=== PATIENT | male | born 1965 | race Caucasian/White ===

== ENCOUNTER → 2020-07-22 16:35 | Outpatient (CLI) | payer MEDICARE, OTHER, SELFPAY | PROVIDERS: Visit Provider Urology | DX: N39.41 Urge incontinence (principal) | CPT/HCPCS: 87086; 87088; 87186 ==

== ENCOUNTER 2022-01-23 13:28 | Emergency (ER) | payer MEDICARE, OTHER, SELFPAY ==
[2022-01-23 14:07] VITALS: BP 122/80; PULSE 77; O2SAT 94
--- NOTE | 2022-01-23 14:08 | PC.NURSE ---
TREE Ramesh at BS
[2022-01-23 14:14] VITALS: BP 122/80; PULSE 88; RESP 17; TEMP 36.8; O2SAT 95; BMI 17.2
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
--- NOTE | 2022-01-23 14:30 | PC.NURSE ---
ED MD at
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
[2022-01-23 14:47] VITALS: BP 124/85; PULSE 88; O2SAT 94
--- NOTE | 2022-01-23 15:00 | PC.NURSE ---
ED MD at speaking with patient
--- NOTE | 2022-01-23 15:17 | PC.NURSE ---
Richy has been notified of patient discharge and will be coming to pick him up
[2022-01-23 15:37] VITALS: BP 121/75; PULSE 81; RESP 17; TEMP 36.8; O2SAT 97
== END 2022-01-23 15:37 | disposition home or self-care (01) ==
LOC: ER 14:16 → COUGHCL 14:20 → ER 14:23
PROVIDERS: Emergency Provider Emergency Medicine; PCP Emergency Medicine
DX: M16.6 Other bilateral secondary osteoarthritis of hip (principal); F32.A Depression, unspecified; F41.9 Anxiety disorder, unspecified; Z79.899 Other long term (current) drug therapy; Z87.891 Personal history of nicotine dependence
CPT/HCPCS: 73562; 99283

== ENCOUNTER 2024-04-10 19:48 | Emergency (ER) | payer MEDICARE, OTHER, SELFPAY ==
[2024-04-10 19:48] VITALS: BP 117/58; PULSE 59; RESP 18; TEMP 36.9; O2SAT 98; BMI 21.2
[2024-04-10 19:53] VITALS: BP 117/58; PULSE 60; O2SAT 95
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
--- OUTSIDE RECORDS SUMMARY | 2024-04-10 19:57 | XMS_ITS | Continuity of Care Document ---
Author Name Unknown Address [address] [place] [phone] Organization [facility] Phone Care Team Providers Care Manager Research Name Role Phone NO, DEFINED P Primary Care Unavailable AUNG HOLLIDAY Admitting Unavailable NO, DEFINED P Unavailable Unavailable AUNG HOLLIDAY Primary Attending Unavailable ALLERGIES AND ADVERSE REACTIONS ALLERGIES AND ADVERSE REACTIONS Code System Allergy Substance Adverse Reaction Date Reaction (Severity) Comment Status Reported By Updated By No Known Allergies EDISUSER on September 19, 2023 4:44:07 AM [facility] RESULTS Patient: NAYELI ARNOLD Date of : [birth year] 3 LABORATORY RESULTS Information is not available LABORATORY NARRATIVE RESULTS Information is not available RADIOLOGY RESULTS ORDER 100: CT BRAIN W/O ([facility] [place]: [address]-8) ORDER DATE: September 19, 2023 4:00:00 AM [facility] PERFORMING LAB: [address] [id number] Final Result Date: September 19, 2023 4:46:[address] [address] Name: CLAYTON TYLER Exam Date: 09/18/2023 : 1965 Age 58 Gender: M Physician: AUNG HOLLIDAY Facility: [facility] Facility HSV: Outpatient Exam: CT BRAIN [...] Thank you for referring CLAYTON TYLER to [facility]. Legally authenticated by YAMIL Mckee 2023-09-18 23:46:04 ORDER 200: PELVIS AP ONLY (L OINC: 87877-8) ORDER DATE: September 19, 2023 4:00:00 AM [facility] PERFORMING LAB: [address] [id number] Final Result Date: September 19, 2023 5:25:41 AM [place] [id number] Name: CLAYTON TYLER Exam Date: 09/18/2023 : 1965 Age 58 Gender: M Physician: AUNG HOLLIDAY Facility: [facility] Facility HSV: Outpatient Exam: PELVIS AP [...] Thank you for referring CLAYTON TYLER to [facility]. Legally authenticated by YOSELIN FELIZ 2023-09-19 00:25:41 ORDER 300: KNEE 3V RT (LOINC : [id number]) ORDER DATE: September 19, 2023 4:00:00 AM [facility] PERFORMING LAB: [facility] [address] [facility] [id number] Final Result Date: September 19, 2023 5:25:29 AM [facility] [address] [place] [address] Name: CLAYTON TYLER Exam Date: 09/18/2023 : 1965 Age 58 Gender: M Physician: AUGN HOLLIDAY Facility: [facility] Facility HSV: Outpatient Exam: KNEE 3V [...] Thank you for referring CLAYTON TYLER to [facility]. Legally authenticated by YOSELIN FELIZ 2023-09-19 00:25:29 [...] Priority Start Date Ordering Physician Updated By [employer] RAD-PUT IMAGES ON RIS ONE TIME 0 [...] Description Effective Dates Offered Cessation Comment UpdatedBy [id number] Current Tobacco smoking status Unknown If Ever Smoked EDISUSER on September 19, 2023 5:45:05 AM [facility] SOCIAL HISTORY - Gender Sex: Male SOCIAL HISTORY - Sexual Behavior Sexual Orientation Gender Identity SNOMED-CT Description SNO MED -CT Description Activity Level No of Partners Partner Type UpdatedBy Information is not available VITAL SIGNS PATIENT VITAL SIGNS This section displays the mo st recent value for each vital sign as of September 19, 2023 6:50:06 AM [facility] Loinc Code Vital Sign Activity Date Result Updated By [id number] Heart rate September 19 5:15:00 AM [facility] 47 /min EDISUSER on September 19, 2023 5:34:24 AM [facility] PEDIATRIC GROWTH CHART - VITAL SIGNS This [...] EMS Admission September 19, 2023 3:57:[address] [address] Discharge September 19, 2023 5:50:00 AM [facility] DISCHARGED TO HOME OR SELF CARE ENCOUNTER DIAGNOSES Notes information is not joanna ilable. Code System Diagnosis Onset Date Diagnosis information is not available. ABSTRACT DIAGNOSES Code System Diagnosis Updated By Abstract Diagnosis informati on is not available. CARE TEAM Care Manager Research Role DEFINED NO Primary Care AUNG HOLLIDAY Admitting DEFINED NO Referring AUNG HOLLIDAY Primary Attending CARE TEAM CARE continuous improvement director Role on Team Status Start Date End Date Update d By NO DEFINED PRIMARY C Referring normal September 19, 2023 4:43:51 AM [facility] September 19, 2023 5:50:00 AM [facility] [id number] on September 19, 2023 4:43:51 AM [facility] MG BEATTY Attending normal September 19, 2023 4:43:51 AM [facility] September 19, 2023 5:50:00 AM [facility] [id number] on September 19, 2023 4:43:51 AM [facility] MG Ortez PHY Admitting normal September 19, 2023 4:43:50 AM [place] September 19, 2023 5:50:00 AM [facility] [id number] on September 19, 2023 4:43:51 AM [facility] NO DEFINED PRIMARY C PCP normal September 19, 2023 3:58:03 AM [place] September 19, 2023 5:50:00 AM [facility] [id number] on September 19, 2023 4:43:51 AM [facility]
[2024-04-10 20:00] VITALS: BP 113/61; PULSE 60; O2SAT 98
--- NOTE | 2024-04-10 20:03 | XR_ITS ---
PROCEDURE INFORMATION: Exam: XR Right Knee Exam date and time: 04/10/2024 8:20 PM Age: 58 years old Clinical indication: Pain; Knee; Right; Additional info: Right knee pain chronic TECHNIQUE: Imaging protocol: Radiologic exam of the right knee. Views: 3 views. COMPARISON: CR XR KNEE RT 3V 01/23/2022 2:32 PM FINDINGS: Bones/joints: Severe calcific atherosclerotic disease of the 3 compartments of the right knee greatest within the medial compartment. Soft tissues: Normal. IMPRESSION: Severe calcific atherosclerotic disease of the 3 compartments of the right knee greatest within the medial compartment.
[2024-04-10] MEDS: ACETAMINOPHEN 500MG TAB 1000 MG PO (20:15)
[2024-04-10] MEDS: IBUPROFEN 600 MG TABLET PO (20:15)
--- NOTE | 2024-04-10 20:26 | ED_ITS ---
Discharge Plan Disposition Patient Disposition: Home, Self-Care Prescriptions Prescriptions: New ibuprofen 400 mg tablet 400 mg PO Q8H PRN (Reason: pain) Qty: 30 0RF acetaminophen 500 mg tablet 1,000 mg PO Q6H PRN (Reason: pain) Qty: 60 0RF No Action divalproex 125 mg capsule, delayed rel sprinkle 250 mg PO BID Qty: 120 2RF Tab-A-Rubi Multivitamin w-iron 15 mg iron- 400 mcg tablet See Rx Instructions .ROUTE .COMPLEX Qty: 30 0RF Dose Instruction: TAKE 1 TABLET BY MOUTH DAILY Rx Instructions: TAKE 1 TABLET BY MOUTH DAILY Referrals Follow up/Referrals: Dom Rios, [Staff Physician] - See instructions Alan Garcia APRN [Primary Care Provider] - See instructions Activity Restrictions/Add. Instructions Additional Instructions/Restrictions: Call your family doctor to establish care for this visit to the emergency department and schedule follow-up within 48 hours to ensure improvement. If you have any worsening of your condition or any other concerning signs or symptoms, return to the emergency department or your primary care doctor for further evaluation. Call Dr. Rios to follow-up for potential knee replacement. His information is here. Take Tylenol 1000 mg every 6 hours (4 times daily) and ibuprofen 400 mg every 6 hours (4 times daily) as needed with food and water to prevent GI upset and kidney damage. Clinical Impressions Clinical Impression: Acute pain of right knee Discharge ED Provider: Paul Turner General Adult HPI General Chief complaint: PAIN Stated complaint: knee pain Time Seen by Provider: 04/10/24 19:56 Mode of Arrival: EMS Source of Information: Patient and EMS Limitations: No Limitations Description of Symptoms (Recalled from ER Triage Doc. by RN): 58 M presents from [facility] with c/o chronic knee pain. Patient reports breaking his right knee in 1981. He spoke with his PCP the other day and mentioned his knee hurting, so they suggested surgey. He would like a second opinion today. Ambula janessa without assistance. History of Present Illness HPI narrative: Please note that above description of symptoms, in this electronic medical record under categorization of recalled from ER triage doctor by RN are reflective of an initial nursing assessment, however, is not reflective of my full history and physical exam that was personally taken and clarified. Consequentially, this preceding description of symptoms, which may include the patient's categorized chief complaint in the EMR, do not reflect my personal clinical impression, and the ultimate description of history of present illness and patient stated complaints should be deferred to this section of the note. Unless stated otherwise or congruent with this section of the note, additional signs, symptoms, or incongruence should be interpreted as inaccurate with my clinical impression. Related Data Previous Rx's Medication Instructions Recorded divalproex 125 mg capsule,delayed 250 mg (2 x 125 mg) PO BID #120 12/11/20 release sprinkle caps multivitamin-iron sulfate 15 See Rx Instructions .Route 05/15/21 mg-folic acid 400 mcg tablet .COMPLEX #30 tabs (Tab-A-Rubi Multivitamin w-iron) acetaminophen 500 mg tablet 1,000 mg (2 x 500 mg) PO Q6H PRN 04/10/24 pain #60 tabs ibuprofen 400 mg tablet 400 mg PO Q8H PRN pain #30 tabs 04/10/24 Allergies Allergy/AdvReac Type Severity Reaction Status Date / Time No Known Allergies Allergy Verified 02/05/22 12:05 [facility] Disclaimer: The information contained in this section may have been updated after the patient was seen, as this information can be updated by other users. Social History Smoking Status: Current some day smoker alcohol intake: former substance use type: denies use current occupational status: disabled Travel in the last 8 weeks: Inside the [facility] housing: detention ROS Obtained: Yes All systems reviewed & no additional complaints except as documented Physical Exam General General appearance: alert Head Head exam: atraumatic and normocephalic Eye Eye exam: Present normal appearance, PERRL and EOMI Neck Neck exam: Present normal inspection, full ROM and trachea midline Respiratory Respiratory exam: Absent respiratory distress, wheezes, stridor, accessory muscle use or prolonged expiratory phase Cardiovascular Cardiovascular exam: Present other (Pulses equal symmetric in upper and lower extremities) Abdominal Exam Abdominal exam: Present soft; Absent distention, tenderness or pulsatile mass Extremities Exam Extremities exam: Present other (Per MDM); Absent edema Neurological Exam Neurological exam: Present alert, oriented X3 and CN II-XII intact; Absent motor sensory deficit Skin Skin exam: Present warm and dry; Absent diaphoresis or erythema Medical Decision Making Medical Records Medical records reviewed: Yes I reviewed the patient's medical records. Wilner Inquiry Pt receiving controlled substance: No Wilner was queried for this patient: No Vital Signs: 04/10/24 19:48 Temperature 98.4 F Temperature Source Oral Pulse Rate [Left] 59 L Respiratory Rate 18 Blood Pressure [Right Arm] 117/58 L Blood Pressure Mean [Right Arm] 77 Blood Pressure Source [Right Arm] Automatic Cuff Blood Pressure Position [Right Arm] Sitting 02 Sat by Pulse Oximetry 98 Oxygen Delivery Method Room Air Orders (Tests/Meds): ED MEDICATIONS Discontinued Medications Generic Name Dose Route Start Last Admin Trade Name Ara PRN Reason Stop Dose Admin Acetaminophen 1,000 mg 04/10/24 20:03 04/10/24 20:15 Acetaminophen 500mg Tab PO 04/10/24 20:04 1,000 mg ONCE ONE Administration Ibuprofen 600 mg 04/10/24 20:03 04/10/24 20:15 Ibuprofen 600 Mg Tablet PO 04/10/24 20:04 600 mg ONCE ONE Administration ORDERS Category Date Time Status Knee XR right 3 views [XR knee RT 3V] Stat Exams 04/10/24 20:03 Taken Medical Decision Narrative: This is a 58-year-old male with history of seizure disorder, COPD still currently smoking, chronic right knee pain and deformity secondary to previous injury necessitated surgery presenting with knee pain. Patient states that his knee pain has been going on for years. States that when he walks he gets worse and causes pain in the medial aspect of his knee. Able to bear weight, it does cause pain when he does so. Has not taken any Tylenol Motrin because the facility he is at ran out. No fevers or chills, red hot swollen joints, injury to the area, or any other concerns. History was obtained via conversation with patient. On arrival, patient hemodynamically stable, alert, oriented x4, appropriate, GCS 15, moving all extremities spontaneously, pupils equal and reactive to light. Full physical exam performed and significant for patient's chronic deformity of right lower extremity with bony protrusion laterally. Neurovascular intact, ambulatory, range of motion is intact. He states it is painful at maximal, and range of motion extension of the knee. Also states that it gets stuck, but does not on my exam with active or passive range of motion. Differential includes meniscus injury, acute on chronic pain, among others. On reevaluation, independent rotation of patient's x-rays demonstrate no acute abnormality, but he does have severe chronic degenerative change of the right knee with chronic deformity. Tylenol and Motrin seem to have helped mildly on reevaluation. Given patient presentation, workup, history, this most likely represents acute on chronic knee pain. I feel patient's right knee is appropriate for potential total knee replacement given degree of deformity and d egeneration. Because patient at baseline without signs or symptoms of clinical decompensation, deemed appropriate for discharge. Results were relayed to patient who voiced understanding and were agreeable to outpatient management and follow up. I discussed my clinical impression with patient and answered all questions. At this time, the evidence for any other entities in the differential is insufficient to warrant any further testing or ED observation. This was explained as well. Advisory was given that persistent or worsening symptoms require further evaluation. I confirmed the understanding of this discussion. Valve Steamer disclaimer Much of this encounter note is an electronic coal pulverizing operator spoken language to printed text. Electronic coal pulverizing operator of the spoken language may permit errors. Although I have reviewed the note, some errors may still exist. Critical Care Critical Care Time Critical Care Time: No
[2024-04-10 20:30] VITALS: BP 111/63; PULSE 59; O2SAT 98
[2024-04-10 21:00] VITALS: BP 107/62; PULSE 52; O2SAT 98
[2024-04-10 21:39] VITALS: BP 138/79; PULSE 80; RESP 20; TEMP 36.7; O2SAT 97
== END 2024-04-10 21:40 | disposition home or self-care (01) ==
PROVIDERS: Emergency Provider Emergency Medicine; PCP Nurse Practitioner Acute Care
DX: M25.561 Pain in right knee (principal)
CPT/HCPCS: 73562; 99283

== ENCOUNTER 2024-10-06 17:57 | Emergency (ER) | payer MEDICARE, OTHER, SELFPAY ==
[2024-10-06] VITALS (8 sets, daily range): BP systolic 94–126; BP diastolic 46–84; PULSE 43–69; RESP 12–20; TEMP 36.6–36.9; O2SAT 95–98; BMI 32.3
--- NOTE | 2024-10-06 17:57 | XR_ITS ---
PROCEDURE INFORMATION: Exam: XR Right Knee Exam date and time: 10/06/2024 6:06 PM Age: 59 years old Clinical indication: Pain; Right; Patient HX: PT has a knot on lateral side of knee TECHNIQUE: Imaging protocol: Radiologic exam of the right knee. Views: 3 views. COMPARISON: CR XR KNEE RT 3V 04/10/2024 8:20 PM FINDINGS: Bones/joints: Stable severe tricompartmental osteoarthritis with near complete loss of the joint space, large marginal osteophyte formation, and subchondral sclerosis. Metallic density within the medial femoral condyle suggests prior ligamentous repair. No acute fracture. Small suprapatellar effusion. Soft tissues: Bulbous swelling in the lateral knee compartment. IMPRESSION: 1. Bulbous swelling in the lateral knee compartment. Could be related to underlying ligamentous or tendinous injury. Consider correlation with MRI. 2. Severe and stable tricompartmental osteoarthritis without acute fracture. 3. Small suprapatellar effusion.
--- NOTE | 2024-10-06 17:58 | ECG_ITS ---
APPROVED REPORT Exam: Resting ECG HR:55 bpm ECG Measurements Heart Rate 55 AXES DE 187 P 98 QRSd 92 QRS 83 QT 422 T 58 QTc [address] ELEVATION, PROBABLY EARLY REPOLARIZATION [ST ELEVATION WITH NORMALLY INFLECTED T-WAVE] BORDERLINE ECG UNCONFIRMED REPORT Electronically signed by : Blair Fitzpatrick, 10/06/2024 23:11:14
[2024-10-06 18:09] LABS: Basophils # 0.1 K/mm3 (0-0.2); Basophils % 0.2 % (0.1-2.0); Eosinophils # 0.2 K/mm3 (0.0-0.4); Eosinophils % 0.6 % (0.1-12.0); Hematocrit 40.2 % (42.0-52.0); Hemoglobin 13.7 g/dL (14.1-18.0); Lymphocytes # 23.7 K/mm3 (0.7-4.5); Lymphocytes % 88.5 % (10-50); Mean Corpuscular HGB Conc 34.1 g/dL (31.8-35.4); Mean Corpuscular Hemoglobin 33.6 pg (27.0-31.2); Mean Corpuscular Volume 98.5 fl (80-94); Mean Platelet Volume 9.7 fl (7.4-10.4); Monocytes # 0.6 K/mm3 (0.1-1.0); Monocytes % 2.3 % (1.7-9.3); Neutrophils # 2.2 K/mm3 (1.8-7.8); Platelet Count 266 K/mm3 (142-424); Red Blood Count 4.08 M/mm3 (4.60-6.20); White Blood Count 26.8 K/mm3 (4.8-10.8)
[2024-10-06 18:14] LABS: MANUAL DIFFERENTIAL MANUAL DIFFERENTIAL (MANUAL DIFF); Neutrophils % 8.3 % (37.0-80.0)
--- NOTE | 2024-10-06 18:29 | XR_ITS ---
PROCEDURE INFORMATION: Exam: XR Chest Exam date and time: 10/06/2024 6:26 PM Age: 59 years old Clinical indication: Pain; Left-sided; Additional info: Chest pain TECHNIQUE: Imaging protocol: Radiologic exam of the chest. Views: 2 views. COMPARISON: CR XR CHEST 2V 10/06/2024 6:26 PM FINDINGS: Lungs: Mild bilateral bronchial wall thickening. There is no evidence of focal pulmonary consolidation. Bilateral apical capping/scarring. Pleural spaces: Unremarkable. No pleural effusion. No pneumothorax. Heart/Mediastinum: Unremarkable. No cardiomegaly. Vasculature: Calcified aortic knob. Bones/joints: Unremarkable. IMPRESSION: Mild bilateral bronchial wall thickening. Suggestive of acute/chronic bronchitis or reactive airways disease.
[2024-10-06 18:39] LABS: Lymphocytes % 88 % (10-50); Monocytes % 1 % (2-9); Neutrophils % 11 % (42-76); Platelet Estimate Normal; RBC Morphology Normal; Total Cells Counted 100
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
[2024-10-06 18:47] LABS: Microscopic, Urine URINE MICROSCOPIC (MICROSCOPIC)
[2024-10-06 18:49] LABS: Alanine Aminotransferase 36 U/L (12-78); Alkaline Phosphatase 128 U/L (38-126); Aspartate Amino Transferase 47 U/L (17-59); Bilirubin,Total 0.3 mg/dl (0.2-1.3); Blood Urea Nitrogen 18 mg/dl (9-20); Calcium 9.3 mg/dl (8.4-10.2); Chloride 96 mmol/L (98-107); Creatinine Clearance Estimated 112 mL/min (50-200); Estimated Glomerular Filt Rate 115 ml/min (>60); GFR (African American) 139 ML/MIN (>60); Glucose 95 mg/dl (74-100); Lipase 59 U/L (23-300); Potassium 4.3 mmoL/L (3.5-5.1); Sodium 134 mmol/L (136-145); Total Protein,Serum 6.8 g/dl (6.3-8.2)
[2024-10-06 18:51] LABS: Anion Gap 10.3 mEq/L (5-15); Carbon Dioxide 32 mmol/L (22.0-30.0)
[2024-10-06 18:57] LABS: Coronavirus 19, PCR Not Detected (NotDetected); Influenza A, PCR Not Detected (NotDetected); Influenza B, PCR Not Detected (NotDetected)
[2024-10-06 19:00] LABS: Troponin I < 0.01 ng/ml (0.00-0.034)
[2024-10-06 19:08] LABS: Albumin/Globulin Ratio 1.4 (1.1-1.8); Globulin 2.8 g/dL (1.3-3.2)
[2024-10-06 19:19] LABS: Appearance,Urine CLEAR (Clear); Bilirubin,Urine Negative (Negative); Blood, Urine 2+ (Negative); Color,Urine YELLOW (Yellow); Glucose,Urine (UA) Negative (Negative); Ketones,Urine Negative (Negative); Leukocyte Esterase,Urine Negative (Negative); Nitrate,Urine Negative (Negative); Protein,Urine Negative (Negative); Urobilinogen,Urine 0.2 EU/dl (0.2)
[2024-10-06 19:25] LABS: C-Reactive Protein 4.1 mg/L (0-4)
[2024-10-06 19:35] LABS: Bacteria,Urine Trace /lpf
--- NOTE | 2024-10-06 20:31 | CT_ITS ---
PROCEDURE INFORMATION: Exam: CT Abdomen And Pelvis Without Contrast Exam date and time: 10/06/2024 8:44 PM Age: 59 years old Clinical indication: Other: Hematuria TECHNIQUE: Imaging protocol: Computed tomography of the abdomen and pelvis without contrast. Radiation optimization: All CT scans at this facility use at least one of these dose optimization techniques: automated exposure control; mA and/or kV adjustment per patient size (includes targeted exams where dose is matched to clinical indication); or iterative reconstruction. COMPARISON: CR Chest 10/06/2024 6:26 PM FINDINGS: Lungs: Lung bases are clear.The esophagus is normal. Liver: Normal. No mass. Gallbladder and biliary ducts: Gallbladder is collapsed difficult to visualize. Pancreas: Pancreas appears normal. Spleen: Spleen is normal Adrenal glands: The adrenal glands appear normal. Kidneys and ureters: No hydronephrosis or urinary tract calculi. Small left renal cyst. Stomach and bowel: Retained stool in the colon. Nonspecific bowel gas pattern. No secondary signs of appendicitis. The rectum has a thick-walled appearance but is predominantly collapsed and difficult to evaluate. Stomach is distended with fluid and debris. Appendix: See Stomach and bowel finding. Intraperitoneal space: Unremarkable. No free air. No significant fluid collection. Vasculature: The aorta demonstrates mild atherosclerotic calcification. Lymph nodes: No free air or fluid or adenopathy. Urinary bladder: The bladder is normal. Reproductive: The prostate and seminal vesicles are normal. Bones/joints: Probable posttraumatic deformity right para median pubic symphysis image 3/113. Soft tissues: Unremarkable. IMPRESSION: 1. No free air or fluid or adenopathy. 2. No hydronephrosis or urinary tract calculi. Small left renal cyst. 3. Retained stool in the colon. Nonspecific bowel gas pattern. No secondary signs of appendicitis. 4. The rectum has a thick-walled appearance but is predominantly collapsed and difficult to evaluate. COMMENTS: Consistent with the [employer]'s Incidental Findings Committee white paper (J Am Chelsey Radiol 2018): Any incidental renal lesion less than 1 cm or classified as too small to characterize, or any incidental cystic renal lesion characterized as simple-appearing, is likely benign. No follow-up imaging is recommended for these lesions per consensus recommendations based on imaging criteria.
[2024-10-06 20:39] LABS: Erythrocyte Sedimentation Rate 18 mm/hr (0-20)
== END 2024-10-06 23:58 | disposition home or self-care (01) ==
PROVIDERS: Nurse Practitioner; Emergency Provider Student in an Organized Health Care Education/Training Program
DX: R31.9 Hematuria, unspecified (principal); R07.9 Chest pain, unspecified; R06.02 Shortness of breath; M25.561 Pain in right knee
CPT/HCPCS: 71046; 73562; 74176; 80053; 81001; 83605; 83690; 84484; 85007; 85025; 85027; 85651; 86140; 87040; 87636; 93005; 99285

== ENCOUNTER 2024-12-30 12:07 | Emergency (ER) | payer MEDICARE, OTHER, SELFPAY ==
[2024-12-30 12:08] VITALS: BP 134/65; PULSE 64; RESP 18; TEMP 37.7; O2SAT 99; BMI 18.6
--- NOTE | 2024-12-30 12:34 | XR_ITS ---
PROCEDURE INFORMATION: Exam: XR Right Tibia and Fibula Exam date and time: 12/30/2024 12:48 PM Age: 59 years old Clinical indication: Other: Fall, chronic deformity, increase pain; Knot on lateral side of knee TECHNIQUE: Imaging protocol: Radiologic exam of the right tibia and fibula. Views: 2 views. COMPARISON: CR XR KNEE RT 3V 10/06/2024 6:06 PM FINDINGS: Bones/joints: End-stage tricompartmental joint space narrowing with osseous erosion and subchondral cystic formation. Large osteophyte formation. No acute fracture or dislocation. Stable varus deformity at the knee joint. Metallic density in the distal femur may be postsurgical. Small suprapatellar joint effusion. Soft tissues: Stable soft tissue deformity along the lateral aspect of the knee. IMPRESSION: 1. Stable soft tissue deformity along the lateral aspect of the knee. 2. Stable end-stage osteoarthritis. 3. Small suprapatellar joint effusion.
--- NOTE | 2024-12-30 12:34 | XR_ITS ---
PROCEDURE INFORMATION: Exam: XR Right Knee Exam date and time: 12/30/2024 12:48 PM Age: 59 years old Clinical indication: Other: Fall, chronic deformity, increase pain; Knot on lateral side of knee; Additional info: Chronic pain/ deformity, recent fall andpain TECHNIQUE: Imaging protocol: Radiologic exam of the right knee. Views: 3 views. COMPARISON: CR XR KNEE RT 3V 10/06/2024 6:06 PM FINDINGS: Bones/joints: End-stage tricompartmental joint space narrowing with osseous erosion and subchondral cystic formation. Large osteophyte formation. No acute fracture or dislocation. Stable varus deformity at the knee joint. Metallic density in the distal femur may be postsurgical. Small suprapatellar joint effusion. Soft tissues: Stable soft tissue deformity along the lateral aspect of the knee. IMPRESSION: 1. Stable soft tissue deformity along the lateral aspect of the knee. 2. Stable end-stage osteoarthritis. 3. Small suprapatellar joint effusion.
--- NOTE | 2024-12-30 12:39 | ED_ITS ---
<Statement entered by Jesse Cao MD - 12/30/24 16:05> I was consulted by the NELLIE, and we discussed the complexity of the problems being addressed. I approved the treatment and management plan for this patient's care in the emergency department, thus performing a substantive portion of the medical decision making. Jesse Cao MD Discharge Plan Disposition Patient Disposition: Home, Self-Care Condition: Good Prescriptions Prescriptions: No Action divalproex 125 mg capsule, delayed rel sprinkle 250 mg PO BID Qty: 120 2RF Tab-A-Nilo Multivitamin w-iron 15 mg iron- 400 mcg tablet See Rx Instructions .ROUTE .COMPLEX Qty: 30 0RF Dose Instruction: TAKE 1 TABLET BY MOUTH DAILY Rx Instructions: TAKE 1 TABLET BY MOUTH DAILY ibuprofen 400 mg tablet 400 mg PO Q8H PRN (Reason: pain) Qty: 30 0RF acetaminophen 500 mg tablet 1,000 mg PO Q6H PRN (Reason: pain) Qty: 60 0RF docusate sodium 100 mg Tablet 100 mg PO DAILY donepezil 5 mg Tablet 5 mg PO DAILY ferrous sulfate 325 mg (65 mg iron) Tablet 325 mg PO DAILY oxybutynin chloride 10 mg Tablet Extended Release 24hr 10 mg PO DAILY paroxetine HCl 10 mg Tablet 10 mg PO DAILY multivitamin [TAB A NILO] Tablet 1 tab PO DAILY atorvastatin 20 mg Tablet 20 mg PO HS benztropine 0.5 mg Tablet 0.5 mg PO BID tamsulosin [Flomax] 0.4 mg Capsule 0.4 mg PO HS divalproex 125 mg Tablet,Delayed Release (Dr/Ec) 375 mg PO BID olanzapine [Zyprexa] 20 mg Tablet 20 mg PO HS sodium chloride 1,000 mg Tablet,Soluble 1,000 mg PO BID haloperidol 10 mg tablet 10 mg PO TID Referrals Follow up/Referrals: Mamta Robertson APRN [Primary Care Provider] - See instructions Activity Restrictions/Add. Instructions Additional Instructions/Restrictions: You were seen for arthritis of the right knee. You need to see an orthopedic surgeon. I would recommend Dr. Emerson in [place], [place] ? . Please have your PCP refer you. Clinical Impressions Clinical Impression: Arthritis of knee, right Instructions Patient Instructions: DI for Knee Pain Print Language Print Language: Honduran Discharge ED Provider: Cao,Jesse G General Adult HPI General Chief complaint: PAIN Stated complaint: right knee pain Time Seen by Provider: 12/30/24 12:08 Mode of Arrival: Ambulatory Source of Information: Patient Description of Symptoms (Recalled from ER Triage Doc. by RN): Pt arrives from [facility] for evaluation of right knee swelling and pain x 2 months. Pt was supposed to have surgery on his knee but has not had that done. VSS History of Present Illness HPI narrative: Patient presents complaining of right knee pain. He reports that he has had a deformity and swelling for 2 years since an injury and surgery. Patient is a poor historian and unable to say where his operation was performed. He reports that on he had a fall injuring his knee. Since that time he has had increased pain. No known fever. MD complaint: Right knee pain Onset (ago): day(s) (2) Location: right and lower extremity Radiation: extremity Severity: moderate Consistency: constant Relieving factors: none Exacerbating factors: movement Related Data Home Medications ?Medication ?Instructions ?Recorded ?Confirmed atorvastatin 20 mg tablet 20 mg PO HS 12/30/24 12/30/24 benztropine 0.5 mg tablet 0.5 mg PO BID 12/30/24 12/30/24 divalproex 125 mg tablet,delayed 375 mg PO BID 12/30/24 12/30/24 release docusate sodium 100 mg tablet 100 mg PO DAILY 12/30/24 12/30/24 donepezil 5 mg tablet 5 mg PO DAILY 12/30/24 12/30/24 ferrous sulfate 325 mg (65 mg 325 mg PO DAILY 12/30/24 12/30/24 iron) tablet haloperidol 10 mg tablet 10 mg PO TID 12/30/24 12/30/24 multivitamin 1 tab PO DAILY 12/30/24 12/30/24 olanzapine 20 mg tablet (Zyprexa) 20 mg PO HS 12/30/24 12/30/24 oxybutynin chloride 10 mg 10 mg PO DAILY 12/30/24 12/30/24 tablet,extended release 24 hr paroxetine HCl 10 mg tablet 10 mg PO DAILY 12/30/24 12/30/24 sodium chloride 1,000 mg soluble 1,000 mg PO BID 12/30/24 12/30/24 tablet tamsulosin 0.4 mg capsule (Flomax) 0.4 mg PO HS 12/30/24 12/30/24 Previous Rx's ?Medication ?Instructions ?Recorded divalproex 125 mg capsule,delayed 250 mg (2 x 125 mg) PO BID #120 12/11/20 release sprinkle caps multivitamin-iron sulfate 15 See Rx Instructions .Route 05/15/21 mg-folic acid 400 mcg tablet .COMPLEX #30 tabs (Tab-A-Nilo Multivitamin w-iron) acetaminophen 500 mg tablet 1,000 mg (2 x 500 mg) PO Q6H PRN 04/10/24 pain #60 tabs ibuprofen 400 mg tablet 400 mg PO Q8H PRN pain #30 tabs 04/10/24 Allergies Allergy/AdvReac Type Severity Reaction Status Date / Time No Known Allergies Allergy Verified 12/30/24 12:13 [facility] Disclaimer: The information contained in this section may have been updated after the patient was seen, as this information can be updated by other users. Social History Smoking Status: Never smoker alcohol intake: former substance use type: denies use current occupational status: disabled Travel in the last 8 weeks: Inside the [place] housing[place] [facility] Have you lived/traveled outside [place] in past 30 days?: No Contact w/someone who lives/traveled outside [place] past 30 days?: No Exposure to someone with infectious disease in past 14 days?: No Do you have a fever (greater than 100.4 F or 38 C)?: No Have you tested positive for COVID-19: No Exposed to someone with COVID-19 in past 14 days?: No Do you have a sore throat?: No Do you have a cough?: No Do you have any weakness?: No Do you have any diarrhea?: No Are you experiencing any unusual bleeding?: No Do you have any muscle aches/pain?: No Do you have any abdominal pain?: No Are you experiencing loss of taste or smell?: No Other Medical History Have you received the Flu Vaccine for this season: No Have you received the Pneumonia Vaccine: No ROS Obtained: Yes Systems reviewed as appropriate & no additional complaints except as documented Physical Exam General General appearance: alert and in no apparent distress Head Head exam: atraumatic and normocephalic Eye Eye exam: Present normal appearance and EOMI Chest Chest inspection: Present symmetric chest wall rise Respiratory Respiratory exam: Present normal lung sounds bilaterally; Absent wheezes or stridor Cardiovascular Cardiovascular exam: Present regular rate and normal rhythm; Absent systolic murmur Extremities Exam Extremities exam: Present other (Right knee varus deformity. Limited flexion. N/V intact. Medial tenderness and edema, no erythema. He has a lateral cystic deformity 3 cm which is chronic. ) Neurological Exam Neurological exam: Present alert and oriented X3 Psychiatric Psychiatric exam: Present normal affect and normal mood Skin Skin exam: Present warm, dry and intact Medical Decision Making Medical Records Screening: Per USPSTF and CDC recommendations, given the prevalence of disease in our [facility], it is our hospital?s policy to screen for HIV and viral Hepatitis for all patients aged 18 and over and those with ongoing risk factors. Wilner Inquiry Pt receiving controlled substance: No Vital Signs: 12/30/24 12:08 12/30/24 13:14 12/30/24 13:30 Temperature 99.8 F H Temperature Source Oral Pulse Rate 66 67 Pulse Rate [Right] 64 Respiratory Rate 18 Blood Pressure 118/60 105/58 L Blood Pressure [Right Arm] 134/65 Blood Pressure Mean 73 Blood Pressure Mean [Right Arm] 88 Blood Pressure Source [Right Arm] Automatic Cuff Blood Pressure Position [Right Arm] Sitting 02 Sat by Pulse Oximetry 99 98 96 Oxygen Delivery Method Room Air Room Air Room Air 12/30/24 14:00 12/30/24 14:30 Temperature Temperature Source Pulse Rate 70 68 Pulse Rate [Right] Respiratory Rate Blood Pressure 107/54 L 116/53 L Blood Pressure [Right Arm] Blood Pressure Mean 65 Blood Pressure Mean [Right Arm] Blood Pressure Source [Right Arm] Blood Pressure Position [Right Arm] 02 Sat by Pulse Oximetry 96 97 Oxygen Delivery Method Room Air Room Air Orders (Tests/Meds): ORDERS Category Date Time Status Knee XR right 3 views [XR knee RT 3V] Stat Exams 12/30/24 12:34 Completed Tibia/fibula XR right 2 views [XR tibia fibula RT 2V] Exams 12/30/24 12:34 Completed Stat HIV Combo Stat Lab 12/30/24 12:12 Ordered Hepatitis C Ab Qual. W/ RFX Stat Lab 12/30/24 12:12 Ordered Medical Decision Narrative: In summary patient is a 59-year-old male who presents the emergency department for evaluation of right knee pain. Patient is hemodynamically upon arrival, afebrile. Obvious deformity to the right knee, some edema, no erythema, no significant tenderness. Deformity and edema are chronic, however patient has had increased pain since a fall. Differential diagnosis includes recurrent fracture, malalignment, effusion. Initial workup will be conducted with x-rays. X-rays show significant arthritis. I did discuss this with Dr. Rios who recommended the patient follow-up with Dr. Pineda for discussion of possible knee replacement. He reports that this is acceptable for weightbearing. Patient was able to ambulate using a walker and was discharged from the emergency with one. Advised to follow-up with PCP for referral to see Dr. Emperatriz bush. Critical Care Critical Care Time Critical Care Time: No
[2024-12-30 13:14] VITALS: BP 118/60; PULSE 66; O2SAT 98
[2024-12-30 13:30] VITALS: BP 105/58; PULSE 67; O2SAT 96
[2024-12-30 14:00] VITALS: BP 107/54; PULSE 70; O2SAT 96
--- NOTE | 2024-12-30 14:23 | PC.NURSE ---
called and [facility]vm with [facility] for walker order per ER MD
[2024-12-30 14:30] VITALS: BP 116/53; PULSE 68; O2SAT 97
--- NOTE | 2024-12-30 14:48 | PC.NURSE ---
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
[2024-12-30 15:07] VITALS: BP 148/79; PULSE 90; RESP 20; TEMP 36.7; O2SAT 98
== END 2024-12-30 15:08 | disposition home or self-care (01) ==
PROVIDERS: Emergency Provider Emergency Medicine; PCP Nurse Practitioner Family
DX: M17.11 Unilateral primary osteoarthritis, right knee (principal); M25.561 Pain in right knee
CPT/HCPCS: 73562; 73590; 99283

== ENCOUNTER 2025-02-09 14:17 | Emergency (ER) | payer MEDICARE, OTHER, SELFPAY ==
[2025-02-09] VITALS (14 sets, daily range): BP systolic 106–133; BP diastolic 58–78; PULSE 52–72; RESP 12–18; TEMP 36.6–36.7; O2SAT 94–100; BMI 22.6
--- NOTE | 2025-02-09 14:17 | ECG_ITS ---
APPROVED REPORT Exam: Resting ECG HR:84 bpm ECG Measurements Heart Rate 84 AXES NM 198 P 84 QRSd 85 QRS 99 QT 397 T 35 QTc 439 Conclusion Sinus rhythm Right axis deviation Electronically signed by : PINEDA CRENSHAW, 02/10/2025 19:40:35
--- NOTE | 2025-02-09 15:17 | CT_ITS ---
PROCEDURE INFORMATION: Exam: CT Head Without Contrast Exam date and time: 02/09/2025 3:38 PM Age: 59 years old Clinical indication: Altered mental status/memory loss; Additional info: Intermittent confusion TECHNIQUE: Imaging protocol: Computed tomography of the head without contrast. Radiation optimization: All CT scans at this facility use at least one of these dose optimization techniques: automated exposure control; mA and/or kV adjustment per patient size (includes targeted exams where dose is matched to clinical indication); or iterative reconstruction. COMPARISON: No relevant prior studies available. FINDINGS: Brain: No acute intracranial hemorrhage.. There is mild diffuse heterogeneity of the white matter attenuation, consistent with chronic white matter ischemic changes. Mild cerebral atrophy Cerebral ventricles: No ventriculomegaly. Paranasal sinuses: Visualized sinuses are unremarkable. No fluid levels. Mastoid air cells: Visualized mastoid air cells are well aerated. Bones: Unremarkable. No acute fracture. Soft tissues: Unremarkable. IMPRESSION: No acute intracranial hemorrhage..
--- NOTE | 2025-02-09 15:17 | HMH.EDGENADL ---
Discharge Plan Disposition Patient Disposition: Home, Self-Care Prescriptions Prescriptions: No Action divalproex 125 mg capsule, delayed rel sprinkle 250 mg PO BID Qty: 120 2RF Tab-A-Nilo Multivitamin w-iron 15 mg iron- 400 mcg tablet See Rx Instructions .ROUTE .COMPLEX Qty: 30 0RF Dose Instruction: TAKE 1 TABLET BY MOUTH DAILY Rx Instructions: TAKE 1 TABLET BY MOUTH DAILY ibuprofen 400 mg tablet 400 mg PO Q8H PRN (Reason: pain) Qty: 30 0RF acetaminophen 500 mg tablet 1,000 mg PO Q6H PRN (Reason: pain) Qty: 60 0RF docusate sodium 100 mg Tablet 100 mg PO DAILY donepezil 5 mg Tablet 5 mg PO DAILY ferrous sulfate 325 mg (65 mg iron) Tablet 325 mg PO DAILY oxybutynin chloride 10 mg Tablet Extended Release 24hr 10 mg PO DAILY paroxetine HCl 10 mg Tablet 10 mg PO DAILY multivitamin [TAB A NILO] Tablet 1 tab PO DAILY atorvastatin 20 mg Tablet 20 mg PO HS benztropine 0.5 mg Tablet 0.5 mg PO BID tamsulosin [Flomax] 0.4 mg Capsule 0.4 mg PO HS divalproex 125 mg Tablet,Delayed Release (Dr/Ec) 375 mg PO BID olanzapine [Zyprexa] 20 mg Tablet 20 mg PO HS sodium chloride 1,000 mg Tablet,Soluble 1,000 mg PO BID haloperidol 10 mg tablet 10 mg PO TID Referrals Follow up/Referrals: Flaco Metzger MD [Referring] - See instructions Flaco Delgadillo MD [Staff Physician] - See instructions Provider,MD Og [Primary Care Provider] - See instructions Activity Restrictions/Add. Instructions Additional Instructions/Restrictions: At this time it was felt you are safe to be discharged home. If new or worsening symptoms please do not hesitate to return the emergency department. One of the types of white blood cells in your blood is elevated, please call and schedule an appointment with Dr. Rios as soon as you are able. I also think that you have a mass in your bladder which is explaining your symptoms and you need to see Dr. Delgadillo as soon as possible. Please call and schedule an appointment with them. Clinical Impressions Clinical Impression: Lymphocytosis, Bladder mass, Bladder incontinence Instructions Patient Instructions: DI for Altered Mental Status Print Language Print Language: Ug[place] Discharge ED Provider: Jesse Cao General Adult HPI General Chief complaint: Altered Mental Status Stated complaint: weakness Time Seen by Provider: 02/09/25 15:11 Mode of Arrival: EMS Source of Information: Patient and EMS Description of Symptoms (Recalled from ER Triage Doc. by RN): Pt presents via [facility] from [facility] for evaluation of altered mental status, decreased appetite, and urinating on himself. PT is GCS 14 IV 20g LFA History of Present Illness HPI narrative: Patient is 59-year-old male known to the emergency department who lives at [facility] who presents emergency department for reported urinary incontinence, decreased appetite, intermittent encephalopathy. Upon questioning the patient he states that he has no acute complaints, no trauma, nothing out of the ordinary and that staff at [facility] called to have him seen him for unknown reasons to him. He is requesting food. Related Data Home Medications ?Medication ?Instructions ?Recorded ?Confirmed atorvastatin 20 mg tablet 20 mg PO HS 12/30/24 12/30/24 benztropine 0.5 mg tablet 0.5 mg PO BID 12/30/24 12/30/24 divalproex 125 mg tablet,delayed 375 mg PO BID 12/30/24 12/30/24 release docusate sodium 100 mg tablet 100 mg PO DAILY 12/30/24 12/30/24 donepezil 5 mg tablet 5 mg PO DAILY 12/30/24 12/30/24 ferrous sulfate 325 mg (65 mg 325 mg PO DAILY 12/30/24 12/30/24 iron) tablet haloperidol 10 mg tablet 10 mg PO TID 12/30/24 12/30/24 multivitamin 1 tab PO DAILY 12/30/24 12/30/24 olanzapine 20 mg tablet (Zyprexa) 20 mg PO HS 12/30/24 12/30/24 oxybutynin chloride 10 mg 10 mg PO DAILY 12/30/24 12/30/24 tablet,extended release 24 hr paroxetine HCl 10 mg tablet 10 mg PO DAILY 12/30/24 12/30/24 sodium chloride 1,000 mg soluble 1,000 mg PO BID 12/30/24 12/30/24 tablet tamsulosin 0.4 mg capsule (Flomax) 0.4 mg PO HS 12/30/24 12/30/24 Previous Rx's ?Medication ?Instructions ?Recorded divalproex 125 mg capsule,delayed 250 mg (2 x 125 mg) PO BID #120 12/11/20 release sprinkle caps multivitamin-iron sulfate 15 See Rx Instructions .Route 05/15/21 mg-folic acid 400 mcg tablet .COMPLEX #30 tabs (Tab-A-Nilo Multivitamin w-iron) acetaminophen 500 mg tablet 1,000 mg (2 x 500 mg) PO Q6H PRN 04/10/24 pain #60 tabs ibuprofen 400 mg tablet 400 mg PO Q8H PRN pain #30 tabs 04/10/24 Allergies Allergy/AdvReac Type Severity Reaction Status Date / Time No Known Allergies Allergy Verified 12/30/24 12:13 [facility] Disclaimer: The information contained in this section may have been updated after the patient was seen, as this information can be updated by other users. Social History Smoking Status: Current every day smoker alcohol intake: former substance use type: denies use current occupational status: disabled Travel in the last 8 weeks?: Inside the [place] housing: snf Other Medical History Have you received the Flu Vaccine for this season: No Have you received the Pneumonia Vaccine: No ROS Obtained: Yes Systems reviewed as appropriate & no additional complaints except as documented Physical Exam General General appearance: alert and in no apparent distress Head Head exam: atraumatic and normocephalic Eye Eye exam: Present PERRL and EOMI ENT ENT exam: Present mucous membranes moist Neck Neck exam: Present normal inspection Chest Chest inspection: Present normal inspection and symmetric chest wall rise Respiratory Respiratory exam: Present normal lung sounds bilaterally; Absent respiratory distress Cardiovascular Cardiovascular exam: Present regular rate and normal rhythm Abdominal Exam Abdominal exam: Present soft; Absent tenderness Extremities Exam Extremities exam: Present other (Chronic deformity of the right knee) Neurological Exam Neurological exam: Present alert, oriented X3 (Alert to place and person) and CN II-XII intact; Absent motor sensory deficit Psychiatric Psychiatric exam: Present normal affect Skin Skin exam: Present warm and dry Medical Decision Making Medical Records Screening: Per USPSTF and CDC recommendations, given the prevalence of disease in our region, it is our hospital?s policy to screen for HIV and viral Hepatitis for all patients aged 18 and over and those with ongoing risk factors. [place]ner Inquiry Pt receiving controlled substance: No Vital Signs: 02/09/25 14:18 02/09/25 14:30 02/09/25 15:00 Temperature 97.8 F Temperature Source Oral Pulse Rate 67 62 Pulse Rate [Right] 68 Respiratory Rate 18 13 12 Blood Pressure 120/63 106/60 L Blood Pressure [Right Arm] 112/63 Blood Pressure Mean [Right Arm] 79 Blood Pressure Source [Right Arm] Automatic Cuff Blood Pressure Position [Right Arm] Sitting 02 Sat by Pulse Oximetry 100 96 95 Oxygen Delivery Method Room Air Room Air Room Air 02/09/25 16:00 02/09/25 16:30 02/09/25 17:32 Temperature Temperature Source Pulse Rate 67 66 58 L Pulse Rate [Right] Respiratory Rate Blood Pressure 133/58 L 114/64 109/64 L Blood Pressure [Right Arm] Blood Pressure Mean [Right Arm] Blood Pressure Source [Right Arm] Blood Pressure Position [Right Arm] 02 Sat by Pulse Oximetry 98 96 97 Oxygen Delivery Method Room Air Room Air Room Air 02/09/25 17:36 02/09/25 19:41 02/09/25 20:30 Temperature Temperature Source Pulse Rate 66 54 L 60 Pulse Rate [Right] Respiratory Rate Blood Pressure 116/67 131/64 108/58 L Blood Pressure [Right Arm] Blood Pressure Mean [Right Arm] Blood Pressure Source [Right Arm] Blood Pressure Position [Right Arm] 02 Sat by Pulse Oximetry 97 95 96 Oxygen Delivery Method Room Air 02/09/25 21:00 02/09/25 21:30 02/09/25 22:00 Temperature Temperature Source Pulse Rate 52 L 56 L 53 L Pulse Rate [Right] Respiratory Rate Blood Pressure 117/58 L 112/65 108/63 L Blood Pressure [Right Arm] Blood Pressure Mean [Right Arm] Blood Pressure Source [Right Arm] Blood Pressure Position [Right Arm] 02 Sat by Pulse Oximetry 95 95 97 Oxygen Delivery Method 02/09/25 22:30 Temperature Temperature Source Pulse Rate 67 Pulse Rate [Right] Respiratory Rate Blood Pressure 123/66 Blood Pressure [Right Arm] Blood Pressure Mean [Right Arm] Blood Pressure Source [Right Arm] Blood Pressure Position [Right Arm] 02 Sat by Pulse Oximetry 94 L Oxygen Delivery Method Lab Data Lab Results 02/09/25 14:19: WBC 32.1 H*, RBC 3.86 L, Hgb 13.2 L, Hct 36.9 L, MCV 95.6 H, MCH 34.2 H, MCHC 35.8 H, RDW 13.7, Plt Count 239, MPV 9.7, Neut % (Auto) 11.3 L, Lymph % (Auto) 86.6 H, [place] % (Auto) 1.7, Eos % (Auto) 0.1, Baso % (Auto) 0.2, Neut # (Auto) 3.6, Lymph # (Auto) 27.8 H, [place] # (Auto) 0.6, Eos # (Auto) 0.0, Baso # (Auto) 0.1, Total Counted 100, Neutrophils % (Manual) 14 L, Lymphocytes % (Manual) 84 H, Monocytes % (Manual) 2, Platelet Estimate Normal, RBC Morphology Normal, Sodium 130 L, Potassium 3.7, Chloride 99, Carbon Dioxide 26, Anion Gap 8.7, BUN 7 L, Creatinine 0.60 L, Estimated Creat Clear 70, Estimated GFR 137, Est GFR ( Amer) 166, Glucose 136 H, Uric Acid 3.5, Calcium 8.7, Magnesium 1.7, Total Bilirubin 0.6, AST 29, ALT 14, Alkaline Phosphatase 89, Lactate Dehydrogenase 142 L, Total Protein 6.5, Albumin 3.7, Globulin 2.8, Albumin/Globulin Ratio 1.3 02/09/25 15:26: Urine Color Yellow, Urine Appearance Clear, Urine pH 8.5, Ur Specific [place] 1.015, Urine Protein 1+ A, Urine Glucose (UA) Negative, Urine Ketones Negative, Urine Blood 1+ A, Urine Nitrate Negative, Urine Bilirubin Negative, Urine Urobilinogen 0.2, Ur Leukocyte Esterase Trace, Urine RBC 3-5, Urine WBC Occasional, Ur Squamous Epith Cells None, Urine Bacteria Trace 02/09/25 14:19 02/09/25 14:19 Orders (Tests/Meds): ED MEDICATIONS Generic Name Dose Route Start Last Admin Trade Name Freq PRN Reason Stop Dose Admin Sodium Chloride 10 ml 02/09/25 20:00 02/09/25 20:01 Sodium Chloride 0.9% 10ml Syr (Rad Only) IV 03/11/25 19:59 10 ml NEEDED PRN Administration Maintain IV Site Discontinued Medications Generic Name Dose Route Start Last Admin Trade Name Freq PRN Reason Stop Dose Admin Diatrizoate Meglum/Diatrizoate Sod 30 ml 02/09/25 17:37 02/09/25 18:10 Diatrizoate Megan 66% & Diatrizoate Na 10% 30ml Udc PO 02/09/25 17:38 30 ml ONCE ONE Administration Iopamidol 75 ml 02/09/25 15:37 02/09/25 15:40 Iopamidol-370 (76%);100ml Bottle IV 02/09/25 15:38 75 ml ONCE ONE Administration Iopamidol 75 ml 02/09/25 15:47 02/09/25 15:48 Iopamidol-370 (76%);100ml Bottle IV 02/09/25 15:48 75 ml ONCE ONE Administration Iopamidol 75 ml 02/09/25 20:00 02/09/25 20:01 Iopamidol-370 (76%);100ml Bottle IV 02/09/25 20:01 75 ml ONCE ONE Administration Sodium Chloride 10 ml 02/09/25 15:37 02/09/25 15:40 Sodium Chloride 0.9% 10ml Syr (Rad Only) IV 02/09/25 15:38 10 ml ONCE ONE Administration ORDERS Category Date Time Status CT abdomen pelvis w con Stat Cat Scan 02/09/25 15:[address] abdomen pelvis w con Stat Cat Scan 02/09/25 17:[address] chest w con Stat Cat Scan 02/09/25 15:[address] head/brain wo con Stat Cat Scan 02/09/25 15:17 Completed CBC w/Auto Diff [Complete Blood Count Auto Diff] Stat Lab 02/09/25 14:19 Completed CMP [Comprehensive Metabolic Panel] Stat Lab 02/09/25 14:19 Completed LDH [Lactate Dehydrogenase] Stat Lab 02/09/25 14:19 Completed MG [Magnesium] Stat Lab 02/09/25 14:19 Completed UA [Urinalysis and Microscopic] Stat Lab 02/09/25 15:26 Completed Uric Acid Stat Lab 02/09/25 14:19 Completed Medical Decision Narrative: In summary patient is a 59-year-old male with past medical history described above who presents to the emergency department for evaluation of urinary incontinence per report of [facility] with intermittent urinary incontinence. I have seen this patient before, I think he is roughly at his mental baseline. patient is hemodynamically stable nontoxic-appearing upon arrival, afebrile. Differential diagnosis includes intracranial abnormality, urinary tract infection, metabolic derangement, deterioration of his chronic functional decline, among others. Workup will be conducted with hematologic labs, urinalysis, noncontrasted CT scan of the head. No additional interventions are indicated given that I do not think he is septic and he has no significant reports of pain and is requesting food. He will undergo p.o. trial. Initial reviewed by me, persistent leukocytosis that is worse from September it is 32,000 with lymphocytic predominance of undetermined significance, there is chronic hyponatremia that is a little worse from prior but is not critical or actionable at this time, no ANEL, urinalysis interpreted by me, there is some trace red blood cells but no overt evidence of infection. 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 Noncontrasted CT scan of the head informally visualized by me no acute large intra-axial hemorrhage. Formal read shows no acute hemorrhage. CT abdomen pelvis has appendicolith medial to the cecum for which differential includes appendicitis, chest CT no definitive pulmonary embolism. I discussed case with radiology and surgery regarding management and they recommend oral contrast. Oral contrast to scan was underwent patient has a normal appendix with asymmetric urinary bladder thickening and nonspecific rectal wall thickening. [id number] ultrasound was done at bedside which shows bladder mass which explains his dysuria and intermittent incontinence. Patient is ambulatory at bedside no concern for spinal cord compression syndrome. Given this I feel the patient is appropriate for outpatient management at this time and was given return precautions he will be referred to hematology and urology for continued evaluation. Critical Care Critical Care Time Critical Care Time: No
[2025-02-09 15:21] LABS: Basophils # 0.1 K/mm3 (0-0.2); Basophils % 0.2 % (0.1-2.0); Eosinophils % 0.1 % (0.1-12.0); Hematocrit 36.9 % (42.0-52.0); Hemoglobin 13.2 g/dL (14.1-18.0); Immature Granulocytes # 0.03 10^3uL; Immature Granulocytes % 0.1 %; Lymphocytes # 27.8 K/mm3 (0.7-4.5); Lymphocytes % 86.6 % (10-50); Mean Corpuscular HGB Conc 35.8 g/dL (31.8-35.4); Mean Corpuscular Hemoglobin 34.2 pg (27.0-31.2); Mean Corpuscular Volume 95.6 fl (80-94); Mean Platelet Volume 9.7 fl (7.4-10.4); Monocytes # 0.6 K/mm3 (0.1-1.0); Monocytes % 1.7 % (1.7-9.3); Neutrophils # 3.6 K/mm3 (1.8-7.8); Neutrophils % 11.3 % (37.0-80.0); Nucleated Red Blood Cells # 0 10^3/uL; Nucleated Red Blood Cells % 0 %; Platelet Count 239 K/mm3 (142-424); Red Blood Count 3.86 M/mm3 (4.60-6.20); Red Cell Distribution Width 13.7 % (11.5-17.5); Red Cell Distribution Width-SD 47.7 fL
[2025-02-09 15:23] LABS: Albumin Level 3.7 g/dl (3.5-5.0); Chloride 99 mmol/L (98-107); Potassium 3.7 mmoL/L (3.5-5.1); Sodium 130 mmol/L (136-145)
[2025-02-09 15:24] LABS: White Blood Count 32.1 K/mm3 (4.8-10.8)
[2025-02-09 15:25] LABS: Alanine Aminotransferase 14 U/L (12-78); Aspartate Amino Transferase 29 U/L (17-59); Blood Urea Nitrogen 7 mg/dl (9-20); Creatinine Clearance Estimated 70 mL/min (50-200); Estimated Glomerular Filt Rate 137 ml/min (>60); GFR (African American) 166 ML/MIN (>60)
[2025-02-09 15:26] LABS: Albumin/Globulin Ratio 1.3 (1.1-1.8); Alkaline Phosphatase 89 U/L (38-126); Anion Gap 8.7 mEq/L (5-15); Bilirubin,Total 0.6 mg/dl (0.2-1.3); Calcium 8.7 mg/dl (8.4-10.2); Carbon Dioxide 26 mmol/L (22.0-30.0); Globulin 2.8 g/dL (1.3-3.2); Glucose 136 mg/dl (74-100); MANUAL DIFFERENTIAL MANUAL DIFFERENTIAL (MANUAL DIFF); Magnesium 1.7 mg/dl (1.6-2.3); Total Protein,Serum 6.5 g/dl (6.3-8.2)
--- NOTE | 2025-02-09 15:26 | CT_ITS ---
PROCEDURE INFORMATION: Exam: CT Chest With Contrast; Diagnostic Exam date and time: 02/09/2025 3:40 PM Age: 59 years old Clinical indication: Other: AMS wbc 30k TECHNIQUE: Imaging protocol: Diagnostic computed tomography of the chest with contrast. Radiation optimization: All CT scans at this facility use at least one of these dose optimization techniques: automated exposure control; mA and/or kV adjustment per patient size (includes targeted exams where dose is matched to clinical indication); or iterative reconstruction. Contrast material: ISOVUE; Contrast volume: 75 ml; Contrast route: IV; COMPARISON: CR XR CHEST 2V 10/06/2024 6:26 PM FINDINGS: Lungs: Paraseptal emphysematous changes especially in the medial aspect of the left upper lobe Pleural spaces: Unremarkable. No pneumothorax. No pleural effusion. Heart: Unremarkable. No cardiomegaly. No pericardial effusion. Coronary arteries: Coronary artery calcifications may indicate coronary artery disease. Lymph nodes: Unremarkable. No enlarged lymph nodes. Vasculature: No definite pulmonary embolism is seen to the level of the lobar pulmonary arterial branches bilaterally. The heterogeneous or decreased density of some small segmental and subsegmental pulmonary arterial branches may reflect inadequate enhancement, beam hardening, or motion, flow, or partial volume averaging artifact. One or more small segmental or subsegmental pulmonary emboli cannot be excluded. . Bones/joints: Unremarkable. No acute fracture. Soft tissues: Unremarkable. Other findings: Motion artifact degrades the images IMPRESSION: No definite pulmonary embolism is seen to the level of the lobar pulmonary arterial branches bilaterally. The heterogeneous or decreased density of some small segmental and subsegmental pulmonary arterial branches may reflect inadequate enhancement, beam hardening, or motion, flow, or partial volume averaging artifact. One or more small segmental or subsegmental pulmonary emboli cannot be excluded. . COMMENTS: The presence of pulmonary emphysema on CT is an independent risk factor for lung cancer. In the absence of a history or active diagnosis of lung cancer, it is recommended that this patient with emphysema be evaluated for enrollment in a low dose CT lung cancer screening program.
--- NOTE | 2025-02-09 15:26 | CT_ITS ---
PROCEDURE INFORMATION: Exam: CT Abdomen And Pelvis With Contrast Exam date and time: 02/09/2025 3:40 PM Age: 59 years old Clinical indication: Other: AMS wbc 30k TECHNIQUE: Imaging protocol: Computed tomography of the abdomen and pelvis with contrast. Radiation optimization: All CT scans at this facility use at least one of these dose optimization techniques: automated exposure control; mA and/or kV adjustment per patient size (includes targeted exams where dose is matched to clinical indication); or iterative reconstruction. Contrast material: ISOVUE; Contrast volume: 75 ml; Contrast route: IV; COMPARISON: CT ABDOMEN PELVIS WO CON 10/06/2024 8:44 PM FINDINGS: Liver: Normal. No mass. Gallbladder and biliary ducts: Normal. No calcified stones. No ductal dilation. Pancreas: Pancreatic atrophy Spleen: Normal. No splenomegaly. Adrenal glands: Normal. No mass. Kidneys and ureters: 13 mm simple cyst lateral left kidney 12 mm simple cyst medial left kidney . No follow-up imaging recommended . Stomach and bowel: Appendicolith identified medial to the cecum series 3, image 278 and coronal series 4 image 30, 31 and sagittal series 6, image 28. There is air-filled loop of bowel connecting to the appendicolith which could represent the appendix but the appendix is not usually filled with air. Consider repeat study with oral contrast for better delineation of the probable appendicitis. Appendix: See Stomach and bowel finding. Intraperitoneal space: Unremarkable. No free air. No significant fluid collection. Vasculature: Unremarkable. No abdominal aortic aneurysm. Lymph nodes: Unremarkable. No enlarged lymph nodes. Urinary bladder: The bladder wall measures fourteen mm. Calcifications within the bladder wall are seen on the sagittal images and may indicate infection or neoplasm. Recommend further evaluation Reproductive: Unremarkable as visualized. Bones/joints: Prior trauma with displaced fractures in the pubic symphysis and right inferior pubic ramus Soft tissues: Unremarkable. IMPRESSION: Appendicolith identified medial to the cecum series 3, image 278 and coronal series 4 image 30, 31 and sagittal series 6, image 28. There is air-filled loop of bowel connecting to the appendicolith which could represent the appendix but the appendix is not usually filled with air. Consider repeat study with oral contrast for better delineation of the probable appendicitis. COMMENTS: Consistent with the [employer]'s Incidental Findings Committee white paper (J Am Chelsey Radiol 2018): Any incidental renal lesion less than 1 cm or classified as too small to characterize, or any incidental cystic renal lesion characterized as simple-appearing, is likely benign. No follow-up imaging is recommended for these lesions per consensus recommendations based on imaging criteria.
--- NOTE | 2025-02-09 15:27 | PC.NURSE ---
Pt provided ham sandwich and dr. woodward
[2025-02-09 15:30] LABS: Microscopic, Urine URINE MICROSCOPIC (MICROSCOPIC)
[2025-02-09 15:31] LABS: Appearance,Urine CLEAR (Clear); Bilirubin,Urine Negative (Negative); Blood, Urine 1+ (Negative); Color,Urine YELLOW (Yellow); Glucose,Urine (UA) Negative (Negative); Ketones,Urine Negative (Negative); Leukocyte Esterase,Urine TRACE (Negative); Nitrate,Urine Negative (Negative); PH,Urine 8.5 (5.0-8.5); Protein,Urine 1+ (Negative); Specific Gravity, Urine 1.015 (1.005-1.030); Urobilinogen,Urine 0.2 EU/dl (0.2)
[2025-02-09 15:38] LABS: Bacteria,Urine Trace /lpf; WBC,Urine Occasional #/hpf (0-3)
[2025-02-09] MEDS: SODIUM CHLORIDE 0.9% 10ML SYR (RAD ONLY) 10 ML IV ×2 (15:40→20:01)
[2025-02-09] MEDS: IOPAMIDOL-370 (76%);100ML BOTTLE 75 ML IV ×3 (15:40→20:01)
[2025-02-09 15:55] LABS: Lymphocytes % 84 % (10-50); Monocytes % 2 % (2-9); Neutrophils % 14 % (42-76); Platelet Estimate Normal; RBC Morphology Normal; Total Cells Counted 100
--- NOTE | 2025-02-09 17:32 | PC.NURSE ---
paged general surgery at this time.
--- NOTE | 2025-02-09 17:37 | CT_ITS ---
PROCEDURE INFORMATION: Exam: CT Abdomen And Pelvis With Contrast Exam date and time: 02/09/2025 7:47 PM Age: 59 years old Clinical indication: Other: AMS; Additional info: Repeat w/ po TECHNIQUE: Imaging protocol: Computed tomography of the abdomen and pelvis with contrast. Radiation optimization: All CT scans at this facility use at least one of these dose optimization techniques: automated exposure control; mA and/or kV adjustment per patient size (includes targeted exams where dose is matched to clinical indication); or iterative reconstruction. Contrast material: ISOVUE; Contrast volume: 75 ml; Contrast route: IV; Other contrast: Oral; COMPARISON: CT ABDOMEN PELVIS W CON 02/09/2025 3:40 PM FINDINGS: Liver: Normal. No mass. Gallbladder and biliary ducts: Normal. No calcified stones. No ductal dilation. Pancreas: Normal. No ductal dilation. Spleen: Normal. No splenomegaly. Adrenal glands: Normal. No mass. Kidneys and ureters: Simple bilateral renal cysts. Stomach and bowel: Circumferential thickening of the rectum her with minor adjacent fat stranding. Appendix: The appendix is normal. Intraperitoneal space: Unremarkable. No free air. No significant fluid collection. Vasculature: Mild atherosclerotic changes are seen within the abdominal aorta and branch vasculature without evidence of aneurysm. Lymph nodes: Unremarkable. No enlarged lymph nodes. Urinary bladder: Mildly asymmetric urinary bladder wall thickening, slightly thicker on the right. Reproductive: Unremarkable as visualized. Bones/joints: Chronic deformity of the right pubic bone. No acute fracture. Soft tissues: Unremarkable. IMPRESSION: 1. Normal appendix. 2. Asymmetric urinary bladder wall thickening. Bladder mass cannot be excluded. 3. Nonspecific rectal wall thickening. Cannot exclude proctitis. 4. Incidental/nonacute findings as described. COMMENTS: Consistent with the [employer]'s Incidental Findings Committee white paper (J Am Chelsey Radiol 2018): Any incidental renal lesion less than 1 cm or classified as too small to characterize, or any incidental cystic renal lesion characterized as simple-appearing, is likely benign. No follow-up imaging is recommended for these lesions per consensus recommendations based on imaging criteria.
[2025-02-09] MEDS: DIATRIZOATE MEG 66% & DIATRIZOATE NA 10% 30ML UDC 30 ML PO (18:10)
--- NOTE | 2025-02-09 18:23 | HMH.ITSTN ---
Pt finished drinking gastrografin, will scan in 1.5 hours
[2025-02-09 22:16] LABS: Lactate Dehydrogenase 142 U/L (313-618); Uric Acid 3.5 mg/dl (3.5-8.5)
--- NOTE | 2025-02-09 23:06 | PC.NURSE ---
IV removed to prepare patient for discharge.
== END 2025-02-09 23:16 | disposition home or self-care (01) ==
PROVIDERS: Emergency Provider Emergency Medicine
DX: D72.820 Lymphocytosis (symptomatic) (principal); N32.89 Other specified disorders of bladder; R30.0 Dysuria; R32 Unspecified urinary incontinence; R41.82 Altered mental status, unspecified; F17.210 Nicotine dependence, cigarettes, uncomplicated
CPT/HCPCS: 70450; 71260; 74177; 80053; 81001; 83615; 83735; 84550; 85007; 85025; 85027; 93005; 99285; Q9963; Q9967

== ENCOUNTER 2025-02-25 16:26 | Outpatient (CLI) | payer MEDICARE, OTHER, SELFPAY ==
[2025-02-25 16:04] LABS: Microscopic, Urine URINE MICROSCOPIC (MICROSCOPIC)
[2025-02-25 16:19] LABS: Appearance,Urine CLOUDY (Clear); Bilirubin,Urine Negative (Negative); Blood, Urine 1+ (Negative); Color,Urine YELLOW (Yellow); Glucose,Urine (UA) Negative (Negative); Ketones,Urine Negative (Negative); Leukocyte Esterase,Urine TRACE (Negative); Nitrate,Urine Negative (Negative); Protein,Urine TRACE (Negative); Urobilinogen,Urine 0.2 EU/dl (0.2)
[2025-02-25 16:23] LABS: PH,Urine >= 9.0 (5.0-8.5)
[2025-02-25 17:16] LABS: Bacteria,Urine 4+ /lpf; Triple Phosphate Crystal,Urine 1+ /lpf
== END 2025-02-25 23:59 | disposition home or self-care (01) ==
LOC: LAB.DROPOF 16:26
PROVIDERS: PCP Urology; Visit Provider Urology
DX: N28.1 Cyst of kidney, acquired (principal); N32.89 Other specified disorders of bladder
CPT/HCPCS: 81001; 87086; 87088

== ENCOUNTER 2025-03-13 10:05 | Emergency (ER) | payer MEDICARE, OTHER, SELFPAY ==
[2025-03-13] VITALS (9 sets, daily range): BP systolic 100–107; BP diastolic 54–60; PULSE 44–78; RESP 16–19; TEMP 36.6–37.1; O2SAT 97–99; BMI 17.9
--- NOTE | 2025-03-13 10:04 | ED_ITS ---
<Statement entered by Katey Fitzpatrick MD - 03/13/25 15:18> I was consulted by the NELLIE, and we discussed the complexity of the problems being addressed. I approved the treatment and management plan for this patient's care in the emergency department, thus performing a substantive portion of the medical decision making. Katey Fitzpatrick MD, GLEN, FACEP Discharge Plan Disposition Patient Disposition: Home, Self-Care Condition: Good Prescriptions Prescriptions: No Action oxybutynin chloride 10 mg tablet extended release 24hr 10 mg PO DAILY 90 Days Qty: 90 0RF tamsulosin [Flomax] 0.4 mg capsule 0.4 mg PO DAILY 90 Days Qty: 90 0RF divalproex 125 mg capsule, delayed rel sprinkle 250 mg PO BID Qty: 120 2RF Tab-A-Nilo Multivitamin w-iron 15 mg iron- 400 mcg tablet See Rx Instructions .ROUTE .COMPLEX Qty: 30 0RF Dose Instruction: TAKE 1 TABLET BY MOUTH DAILY Rx Instructions: TAKE 1 TABLET BY MOUTH DAILY ibuprofen 400 mg tablet 400 mg PO Q8H PRN (Reason: pain) Qty: 30 0RF acetaminophen 500 mg tablet 1,000 mg PO Q6H PRN (Reason: pain) Qty: 60 0RF docusate sodium 100 mg Tablet 100 mg PO DAILY donepezil 5 mg Tablet 5 mg PO DAILY ferrous sulfate 325 mg (65 mg iron) Tablet 325 mg PO DAILY paroxetine HCl 10 mg Tablet 10 mg PO DAILY multivitamin [TAB A NILO] Tablet 1 tab PO DAILY atorvastatin 20 mg Tablet 20 mg PO HS benztropine 0.5 mg Tablet 0.5 mg PO BID divalproex 125 mg Tablet,Delayed Release (Dr/Ec) 375 mg PO BID olanzapine [Zyprexa] 20 mg Tablet 20 mg PO HS sodium chloride 1,000 mg Tablet,Soluble 1,000 mg PO BID haloperidol 10 mg tablet 10 mg PO TID Referrals Follow up/Referrals: Gagandeep Metzger MD [Staff Physician, Oncology] - 03/15/25 11:00 am Mamta Robertson APRN [Primary Care Provider, Medical] - See instructions Jamie Estrella MD [Staff Physician, Cardiology] - See instructions Clinical Impressions Clinical Impression: Leukocytosis Qualifiers: Leukocytosis type: lymphocytosis Qualified Code(s): D72.820 - Lymphocytosis (symptomatic) Chest pain Qualifiers: Chest pain type: unspecified Qualified Code(s): R07.9 - Chest pain, unspecified Print Language Print Language: Korean Discharge ED Provider: Katey Fitzpatrick General Adult HPI General Chief complaint: PAIN Stated complaint: Rt Knee Pain Time Seen by Provider: 03/13/25 10:07 History of Present Illness HPI narrative: Patient presents for via EMS initially with a chief complaint of right knee pain. Patient is a resident of [facility] and has a history of schizophrenia. Unfortunately he is a very poor historian. Reportedly he told the [facility] staff he was having chest pain last night. At the time of my interview today patient reports that he has pain everywhere . He makes no mention specifically of chest pain shortness of breath fever chills hemoptysis hematochezia melena nausea vomiting diarrhea or right knee pain or injury. He has however been seen several times in the emergency department for knee pain previously. Related Data Home Medications ?Medication ?Instructions ?Recorded ?Confirmed atorvastatin 20 mg tablet 20 mg PO HS 12/30/24 5 benztropine 0.5 mg tablet 0.5 mg PO BID 12/30/2402/25 divalproex 125 mg tablet,delayed 375 mg PO BID 5 02/25/25 release docusate sodium 100 mg tablet 100 mg PO DAILY 12/30/24 02/25/25 donepezil 5 mg tablet 5 mg PO DAILY 12/30/2402/25 ferrous sulfate 325 mg (65 mg 325 mg PO DAILY 12/30/24 02/25/25 iron) tablet haloperidol 10 mg tablet 10 mg PO TID 12/30/24 multivitamin 1 tab PO DAILY 12/30/2411/20 olanzapine 20 mg tablet (Zyprexa) 20 mg PO HS 12/30/24 02/25/25 paroxetine HCl 10 mg tablet 10 mg PO DAILY 12/30/24 sodium chloride 1,000 mg soluble 1,000 mg PO BID 12/3002/25/25 tablet Previous Rx's ?Medication ?Instructions ?Recorded divalproex 125 mg capsule,delayed 250 mg (2 x 125 mg) PO BID #120 12/11/20 release sprinkle caps multivitamin-iron sulfate 15 See Rx Instructions .Rout e 05/15/21 mg-folic acid 400 mcg tablet .COMPLEX #30 tabs (Tab-A-Nilo Multivitamin w-iron) acetaminophen 500 mg tablet 1,000 mg (2 x 500 mg) PO Q 6H PRN 04/10/24 pain #60 tabs ibuprofen 400 mg tablet 400 mg PO Q8H PRN pain #30 t abs 04/10/24 oxybutynin chloride 10 mg 10 mg PO DAILY 90 days #90 t abs 02/25/25 tablet,extended release 24 hr tamsulosin 0.4 mg capsule (Flomax) 0.4 mg PO DAILY 90 days #90 caps 02/25/25 Allergies Allergy/AdvReac Type Severity Reaction Status Date / Time chlorpromazine (From Allergy Unknown Verified 03/13/25 10:22 Thorazine) allergy reaction PFSH PFS Disclaimer: The information contained in this section may have been updated after the patient was seen, as this information can be updated by other users. Social History Smoking Status: Current every day smoker alcohol intake: former substance use type: denies use current occupational status: disabled Travel in the last 8 weeks?: Inside the [place] housing: [facility] Other Medical History Have you received the Flu Vaccine for this season: No Have you received the Pneumonia Vaccine: No ROS Obtained: Yes Systems reviewed as appropriate & no additional complaints except as documented Physical Exam General General appearance: alert and in no apparent distress Respiratory Respiratory exam: Present normal lung sounds bilaterally Cardiovascular Cardiovascular exam: Present bradycardia Neurological Exam Neurological exam: Present alert Medical Decision Making Medical Records Medical records reviewed: Yes I reviewed the patient's medical records. Screening: Per USPSTF and CDC recommendations, given the prevalence of disease in our region, it is our hospital?s policy to screen for HIV and viral Hepatitis for all patients aged 18 and over and those with ongoing risk factors. [place] Inquiry Pt receiving controlled substance: No Vital Signs: 03/13/25 10:13 03/13/25 10:19 03/13/25 10:30 Temperature 98.7 F Temperature Source Oral Pulse Rate 62 52 L Pulse Rate [Right Brachial] 57 L Respiratory Rate 19 17 Blood Pressure 100/57 L Blood Pressure [Right Arm] 102/60 L Blood Pressure Mean 69 Blood Pressure Mean [Right Arm] 74 Blood Pressure Source [Right Arm] Automatic Cuff 02 Sat by Pulse Oximetry 97 98 97 Oxygen Delivery Method Room Air Room Air 03/13/25 11:00 03/13/25 11:30 03/13/25 12:00 Temperature Temperature Source Pulse Rate 44 L 45 L 45 L Pulse Rate [Right Brachial] Respiratory Rate 16 18 16 Blood Pressure 106/58 L 104/54 L 107/59 L Blood Pressure [Right Arm] Blood Pressure Mean 79 70 79 Blood Pressure Mean [Right Arm] Blood Pressure Source [Right Arm] 02 Sat by Pulse Oximetry 99 98 99 Oxygen Delivery Method Lab Data Lab results reviewed: Yes I reviewed the patient's lab results. Lab Results 03/13/25 10:29: WBC 21.3 H*, RBC 3.69 L, Hgb 12.5 L, Hct 35.5 L, MCV 96.2 H, MCH 33.9 H, MCHC 35.2, RDW 14.1, Plt Count 221, MPV 9.2, Neut % (Auto) 8.6 L, Lymph % (Auto) 88.1 H, Hockley % (Auto) 3.0, Eos % (Auto) 0.2, Baso % (Auto) 0.1, Neut # (Auto) 1.8, Lymph # (Auto) 18.8 H, Hockley # (Auto) 0.6, Eos # (Auto) 0.1, Baso # (Auto) 0.0, Total Counted 100, Neutrophils % (Manual) 7 L, Lymphocytes % (Manual) 89 H, Monocytes % (Manual) 3, Basophils % (Manual) 1.0, Platelet Estimate Normal, RBC Morphology Normal, Sodium 127 L, Potassium 4.0, Chloride 98, Carbon Dioxide 27, Anion Gap 6.0, BUN 7 L, Creatinine 0.70, Estimated Creat Clear 62, Estimated GFR 115, Est GFR ( Amer) 139, Glucose 86, Calcium 9.2, Magnesium 1.8, Total Bilirubin 0.9, AST 24, ALT 11 L, Alkaline Phosphatase 68, Troponin I < 0.01, Total Protein 6.0 L, Albumin 3.5, Globulin 2.5, Albumin/Globulin Ratio 1.4 03/13/25 10:29 03/13/25 10:29 Orders (Tests/Meds): ED MEDICATIONS Discontinued Medications Generic Name Dose Route Start Last Admin Trade Name Freq PRN Reason Stop Dose Admin Acetaminophen 1,000 mg 03/13/25 10:11 03/13/25 10:34 Acetaminophen 500mg Tab PO 03/13/25 10:12 1,000 mg ONCE ONE Administration Ketorolac Tromethamine 15 mg 03/13/25 10:11 03/13/25 10:34 Ketorolac 30mg/Ml Vial IV 03/13/25 10:12 15 mg ONCE ONE Administration ORDERS Category Date Time Status Chest XR 2 view (NOT portable) [XR chest 2V] Stat Exams 03/13/25 10:12 Taken CBC w/Auto Diff [Complete Blood Count Auto Diff] Stat Lab 03/13/25 10:29 Completed CMP [Comprehensive Metabolic Panel] Stat Lab 03/13/25 10:29 Completed Magnesium Stat Lab 03/13/25 10:29 Completed Peripheral Smear Review Stat Lab 03/13/25 10:29 Received Trop I [Troponin I] Stat Lab 03/13/25 10:29 Completed Troponin I Q3H Lab 03/13/25 13:15 Ordered Troponin I Q3H Lab 03/13/25 16:15 Ordered UA [Urinalysis and Microscopic] Stat Lab 03/13/25 10:11 Ordered HEART Score History (anamnesis): Slightly suspicious ECG: Non-specific disturbance Age: 45-65 years Risk factors: 1-2 risk factors Troponin: </= normal limit HEART Score: 3 Medical Decision Narrative: In summary patient is a 59-year-old male who presents to the emergency department for evaluation of complaint of pain everywhere . However report from the [facility] staff states that he complained of chest pain last night which is why he was sent.. Patient is additionally slightly hypotensive with a blood pressure of 102/60 with a heart rate of 57 with sinus bradycardia on the bedside monitor breathing 19 times minute satting at 97% on room air upon arrival, afebrile at 98.7. Physical exam however reveals a cachectic appearing 59-year-old male with a BMI 17, who otherwise in no acute distress. Breath sounds clear and equal bilaterally to the bases without adventitious sounds. Cardiovascular is S1-S2 slow but regular rate and rhythm without murmurs gallops rubs or thrills. Abdomen soft nontender no rebound or guarding no rigidity. Bowel sounds normoactive. Patient has multiple areas of pain when touched however there is no evidence of bony deformity and cellulitis edema. Patient is neurovascularly intact in all 4 extremities and is ambulatory in the ER. Patient does not have an antalgic gait. Differential diagnosis includes symptomatic bradycardia versus ACS versus electrolyte abnormality as patient is on multiple psychiatric medications etc. Initial workup will be conducted with hematologic labs urinalysis twelve-lead EKG. Initial interventions include Tylenol and Toradol. Initial workup reviewed by me and his hematologic labs are significant for leukocytosis which are predominantly lymphocytes with an absolute lymphocyte count of 18.8. Review of his chart shows that he has persistent leukocytosis and every visit that he is had labs but he does not have any known diagnosis of blood dyscrasia and his medical history from [facility] or in our records. And patient has a sodium of 127 but has a known diagnosis of chronic hyponatremia and the remainder of his blood work is nonactionable including an undetectable troponin. Given that the patient has no specific chest pain complaint today and length of time is greater than 8 hours from the time of reported chest pain the single troponin is sufficient. My informal interpretation of this plain film chest x-ray shows no acute processes prior to radiology read. Please see final read formal interpretation. Given this we have ruled out any serious or life-threatening acute condition and while there remains diagnostic uncertainty as to what the patient's conditions may be we feel he is safe for discharge with referral to cardiology for risk stratification and to hematology oncology for forwardly HATHAWAY of his leukocytosis. We have a made an appointment with Dr. Rios for him and details are being given to Richy. If patient has any new or worsening signs or symptoms he is to return to the his PCP or return to the ER as needed. Critical Care Critical Care Time Critical Care Time: No
--- NOTE | 2025-03-13 10:12 | XR_ITS ---
FINAL REPORT CLINICAL HISTORY: Chest pain FINDINGS: CHEST 2 VIEWS PA AND LATERAL The heart is normal in size. The mediastinum is unremarkable. There are mild chronic changes at the lung bases. There is no pneumothorax. IMPRESSION: No acute process. Reviewed, Interpreted and Dictated by Charles Rosenthal MD Transcribed by Adriane Russell Authenticated and [facility]
--- NOTE | 2025-03-13 10:13 | ECG_ITS ---
APPROVED REPORT Exam: Resting ECG HR:48 bpm ECG Measurements Heart Rate 48 AXES IL 200 P 71 QRSd 87 QRS 81 QT 423 T 66 QTc 389 Conclusion SINUS BRADYCARDIA BORDERLINE ECG UNCONFIRMED REPORT Electronically signed by : Blair Fitzpatrick, 03/13/2025 15:20:58
--- OUTSIDE RECORDS SUMMARY | 2025-03-13 10:20 | XMS_ITS | Clinical Summary ---
Author Organization [facility] Address [address] [place] [address] Phone Care Team Providers Care Commutator Inspector Name Role Phone Unavailable Primary Care Provider Unavailabl e Allergies No known active allergies Medications * This document contains information received from the source organization and may not represent a complete record from that organization. 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 Mood disorder 04/09/2024 Cognitive dysfunction in chronic schizophrenia 1 10/17/2020 Schizophrenia, unspecified 08/11/2020 Schizoaffective disorder, unspecified 08/11/2020 Delusions 08/11/2020 Resolved Problems Problem Noted Date Diagnosed Date Resolved Date Hallucinations 08/11/2020 04/09/2024 Irritability and anger 08/11/202004/09 Agitation 08/11/2020 04/09/2024 Medication monitoring encounter 08/11/2020 04/09/2024 Anxiety disorder, unspecified 08/11/2020 04/09/2024 Social History Tobacco Use Types Packs/Day Years Used Date Smoking Tobacco: Never Assessed Sex and Gender Information Value Date Recorded Sex Assigned at Not on file Legal Sex Male 1:32 PM EST Gender Identity Not on file Sexual Orientation Not on file Plan of Treatment Health Maintenance Due Date Last Done Comments Wellness Exam Medicare 1966 Hepatitis C Screening 1981 DTaP/TDaP/Td (1 - Tdap) 1982 Cologuard 2008 Colon Cancer Screening 2008 Colonoscopy 2008 FIT 2008 Sigmoidoscopy 2008 Virtual Colonography 2008 Pneumococcal Vaccine 50+ (1 of 1 - PCV) 2013 Zoster (1 of 2) 2013 COVID-19 Vaccine (1 - 2023-2 5 season) 2024 Influenza Vaccine (Season Ended) 2025 Hepatitis B Vaccine Aged Out No longe r eligible based on patient's age to complete this topic Meningococcal B Vaccine Aged Out No l onger eligible based on patient's age to complete this topic Insurance KYLE [id number] AETNA [facility] [place] [address] [address]
--- OUTSIDE RECORDS SUMMARY | 2025-03-13 10:20 | XMS_ITS | Patient Health Record ---
[facility] Address [address] [place] [address] Care Team Providers Care Broadcast Maintenance Engineer Name Role Phone Kati Castrejon Unavailable [phone] Reason For Referral No Information Problems Problem Type SNOMED Code ICD Code Onset Dates Problem Status W/U Status Risk Notes Problem Acute exacerbation of subchronic schizoaffective schizophrenia (010718017) Schizoaffective disorder, subchronic with acute exacerbation (295.73) Active confirmed Plan Of Treatment No Information Insurance Providers Payer Name Payer Address Payer Phone Subscriber Number Group Number Insured Name Patient Relationship to Insured Coverage Start Date Coverage End Date Administar [facility] [address] [facility] [place], [place] [id number] CLAYTON TYLER Self - patient is the insured [facility] [address] [place] [id number] CLAYTON TYLER Self - patient is the insured
[2025-03-13] MEDS: KETOROLAC 30MG/ML VIAL 15 MG IV (10:34)
[2025-03-13] MEDS: ACETAMINOPHEN 500MG TAB 1000 MG PO (10:34)
[2025-03-13 10:39] LABS: Basophils % 0.1 % (0.1-2.0); Eosinophils # 0.1 Kmm3 (0.0-0.4); Eosinophils % 0.2 % (0.1-12.0); Hematocrit 35.5 % (42.0-52.0); Hemoglobin 12.5 g/dL (14.1-18.0); Immature Granulocytes # 0.01 10^3uL; Immature Granulocytes % 0 %; Lymphocytes # 18.8 K/mm3 (0.7-4.5); Lymphocytes % 88.1 % (10-50); Mean Corpuscular HGB Conc 35.2 g/dL (31.8-35.4); Mean Corpuscular Hemoglobin 33.9 pg (27.0-31.2); Mean Corpuscular Volume 96.2 fl (80-94); Mean Platelet Volume 9.2 fl (7.4-10.4); Monocytes # 0.6 K/mm3 (0.1-1.0); Neutrophils # 1.8 K/mm3 (1.8-7.8); Neutrophils % 8.6 % (37.0-80.0); Nucleated Red Blood Cells # 0.07 10^3/uL; Nucleated Red Blood Cells % 0.3 %; Platelet Count 221 K/mm3 (142-424); Red Blood Count 3.69 M/mm3 (4.60-6.20); Red Cell Distribution Width 14.1 % (11.5-17.5); Red Cell Distribution Width-SD 50.1 fL; White Blood Count 21.3 K/mm3 (4.8-10.8)
[2025-03-13 10:50] LABS: Alanine Aminotransferase 11 U/L (12-78); Albumin Level 3.5 g/dl (3.5-5.0); Albumin/Globulin Ratio 1.4 (1.1-1.8); Alkaline Phosphatase 68 U/L (38-126); Aspartate Amino Transferase 24 U/L (17-59); Bilirubin,Total 0.9 mg/dl (0.2-1.3); Blood Urea Nitrogen 7 mg/dl (9-20); Calcium 9.2 mg/dl (8.4-10.2); Carbon Dioxide 27 mmol/L (22.0-30.0); Chloride 98 mmol/L (98-107); Creatinine Clearance Estimated 62 mL/min (50-200); Estimated Glomerular Filt Rate 115 ml/min (>60); GFR (African American) 139 ML/MIN (>60); Globulin 2.5 g/dL (1.3-3.2); Glucose 86 mg/dl (74-100); Magnesium 1.8 mg/dl (1.6-2.3); Sodium 127 mmol/L (136-145)
[2025-03-13 11:05] LABS: Troponin I < 0.01 ng/ml (0.00-0.034)
[2025-03-13 11:11] LABS: MANUAL DIFFERENTIAL MANUAL DIFFERENTIAL (MANUAL DIFF)
[2025-03-13 11:13] LABS: Lymphocytes % 89 % (10-50); Monocytes % 3 % (2-9); Neutrophils % 7 % (42-76); Platelet Estimate Normal; RBC Morphology Normal; Total Cells Counted 100
--- NOTE | 2025-03-13 11:48 | CARE MANAGER ---
Received call requesting patient have appt with Dr. Metzger. Scheduled appt on 03/15/25 @ 11am. Arranged transportation with [facility] and spoke with Suzette at [facility] relaying all information.
--- NOTE | 2025-03-13 12:06 | PC.NURSE ---
pt going to Rad at this time
--- NOTE | 2025-03-13 12:43 | PC.NURSE ---
placed patient on care a van transport list and contacted [facility] to let them know to let darline know patient is ready for belt picker
--- NOTE | 2025-03-13 12:44 | PC.NURSE ---
Attempt to call [place] [facility] for report/transport, no answer x2.
--- NOTE | 2025-03-13 13:15 | PC.NURSE ---
Patient sitting at bedside in chair watching television. Snack and coffee provided. Patient continues to await [facility] arrival for transport.
--- NOTE | 2025-03-13 13:20 | PC.NURSE ---
[facility] arrival for transport, notified patient is to follow up with Dr. Metzger on Tuesday03/15/25 at 11:00AM. Also notified [facility] is set up to take him to DR. Cunningham Office and bring him back to [facility]. Patient ambulatory and without complaints upon departure.
[2025-03-15 11:36] LABS: Peripheral Smear Review Scanned Result
== END 2025-03-13 13:24 | disposition home or self-care (01) ==
PROVIDERS: Physician Assistant; Emergency Provider Student in an Organized Health Care Education/Training Program; PCP Nurse Practitioner Family
DX: R07.9 Chest pain, unspecified (principal); D72.820 Lymphocytosis (symptomatic); R00.1 Bradycardia, unspecified; E87.1 Hypo-osmolality and hyponatremia; F17.210 Nicotine dependence, cigarettes, uncomplicated; M25.561 Pain in right knee
CPT/HCPCS: 71046; 80053; 83735; 84484; 85007; 85025; 85027; 93005; 96374; 99284; J1885

== ENCOUNTER 2025-03-15 11:37 | Outpatient (CLI) | payer MEDICARE, OTHER, SELFPAY ==
--- OUTSIDE RECORDS SUMMARY | 2025-03-15 11:39 | XMS_ITS | Clinical Summary ---
Author Organization [place] [facility] Address [address] [place] [address] Phone Care Team Providers Care Farmworker [place] Name Role Phone Unavailable Primary Care Provider [...] age to complete this topic Insurance KYLE [id number] AETNA [facility] [place] [address] [address]
[2025-03-15 13:39] LABS: Blood Urea Nitrogen 9 mg/dl (9-20); Estimated Glomerular Filt Rate 137 ml/min (>60); GFR (African American) 166 ML/MIN (>60)
[2025-03-16 08:17] LABS: PSA, Free 0.19 ng/mL; Prostate Specific Ag 1.1 ng/mL (0.0-4.0)
[2025-03-17 11:43] LABS: Peripheral Smear Review Scanned Result
== END 2025-03-15 23:59 | disposition home or self-care (01) ==
LOC: LAB 11:38
PROVIDERS: Urology; PCP Nurse Practitioner Family; Visit Provider Internal Medicine Medical Oncology
DX: D72.820 Lymphocytosis (symptomatic) (principal); N28.1 Cyst of kidney, acquired; R31.9 Hematuria, unspecified
CPT/HCPCS: 36415; 82565; 84153; 84154; 84520

== ENCOUNTER 2025-05-14 09:36 | Outpatient (CLI) | payer MEDICARE, OTHER, SELFPAY ==
--- OUTSIDE RECORDS SUMMARY | 2025-05-14 09:42 | XMS_ITS | Patient Health Record ---
[facility] Address [address] [place] [address] Care Team Providers Care Migration Specialist Name Role Phone Kati Castrejon Unavailable [phone] Reason For Referral No Information Problems Problem Type SNOMED Code ICD Code Onset Dates Problem Status W/U Status Risk Notes Problem Acute exacerbation of subchronic schizoaffective schizophrenia (610255918) Schizoaffective disorder, subchronic with acute exacerbation (295.73) Active confirmed Plan Of Treatment No Information Insurance Providers Payer Name Payer Address Payer Phone Subscriber Number Group Number Insured Name Patient Relationship to Insured Coverage Start Date Coverage End Date Administar [facility] [address] [facility] [place], [place] [id number] CLAYTON TYLER Self - patient is the insured [facility] [address] [place] [id number] CLAYTON TYLER Self - patient is the insured
--- OUTSIDE RECORDS SUMMARY | 2025-05-14 09:42 | XMS_ITS | Clinical Summary ---
Author Organization [place] [facility] Address [address] [place] [address] Phone Care Team Providers Care Bridge Repair Crew Person Name Role Phone Unavailable Primary Care Provider [...] - 2023-2 5 season) 2024 Influenza Vaccine (#1) 2025 Hepatitis B Vaccine Aged Out No longe r eligible based on patient's age to complete this topic Meningococcal B Vaccine Aged Out No l onger eligible based on patient's age to complete this topic Insurance AETNA [facility] [place] [address] [address]
== END 2025-05-14 23:59 | disposition home or self-care (01) ==
LOC: LAB 09:39
PROVIDERS: PCP Nurse Practitioner Family; Visit Provider Internal Medicine Medical Oncology
DX: D72.820 Lymphocytosis (symptomatic) (principal)
CPT/HCPCS: 36415

== ENCOUNTER 2025-05-21 10:51 | Outpatient (CLI) | payer MEDICARE, OTHER, SELFPAY ==
--- OUTSIDE RECORDS SUMMARY | 2025-05-21 11:01 | XMS_ITS | Patient Health Record ---
[facility] Address [address] [place] [address] Care Team Providers Care Nurse Office Name Role Phone Kati Castrejon Unavailable [phone] Reason For Referral No Information Problems Problem Type SNOMED Code ICD Code Onset Dates Problem Status W/U Status Risk Notes Problem Acute exacerbation of subchronic schizoaffective schizophrenia (091710032) Schizoaffective disorder, subchronic with acute exacerbation (295.73) Active confirmed Plan Of Treatment No Information Insurance Providers Payer Name Payer Address Payer Phone Subscriber Number Group Number Insured Name Patient Relationship to Insured Coverage Start Date Coverage End Date Administar [facility] [address] [facility] [place], [place] [id number] CLAYTON TYLER Self - patient is the insured [facility] [address] [place] [id number] CLAYTON TYLER Self - patient is the insured
--- OUTSIDE RECORDS SUMMARY | 2025-05-21 11:01 | XMS_ITS | Clinical Summary ---
Author Organization [facility] Address [address] [place] [address] Phone Care Team Providers Care Pinked Edge Sewing Machine Operator Name Role Phone Unavailable Primary Care Provider [...] age to complete this topic Insurance AETNA [facility] [place] [address] [address]
[2025-05-21 11:20] LABS: Hematocrit 37.6 % (42.0-52.0); Hemoglobin 12.7 g/dL (14.1-18.0); Immature Granulocytes % 0.1 %; Mean Corpuscular HGB Conc 33.8 g/dL (31.8-35.4); Mean Corpuscular Hemoglobin 33.2 pg (27.0-31.2); Mean Corpuscular Volume 98.2 fl (80-94); Nucleated Red Blood Cells % 0 %; Platelet Count 228 K/mm3 (142-424); Red Blood Count 3.83 M/mm3 (4.60-6.20); Red Cell Distribution Width-SD 48.4 fL; White Blood Count 27.8 K/mm3 (4.8-10.8)
[2025-05-21 11:36] LABS: Albumin Level 3.9 g/dl (3.5-5.0); Chloride 99 mmol/L (98-107); Potassium 4.3 mmoL/L (3.5-5.1); Sodium 132 mmol/L (136-145)
[2025-05-21 11:39] LABS: Alanine Aminotransferase 10 U/L (12-78); Albumin/Globulin Ratio 1.7 (1.1-1.8); Alkaline Phosphatase 76 U/L (38-126); Anion Gap 11.3 mEq/L (5-15); Aspartate Amino Transferase 19 U/L (17-59); Bilirubin,Total 0.6 mg/dl (0.2-1.3); Blood Urea Nitrogen 6 mg/dl (9-20); Calcium 9.3 mg/dl (8.4-10.2); Carbon Dioxide 26 mmol/L (22.0-30.0); Creatinine,Serum 0.60 mg/dl (0.66-1.25); Estimated Glomerular Filt Rate 137 ml/min (>60); GFR (African American) 166 ML/MIN (>60); Globulin 2.3 g/dL (1.3-3.2); Glucose 93 mg/dl (74-100); Total Protein,Serum 6.2 g/dl (6.3-8.2)
[2025-05-21 13:04] LABS: RBC Morphology Normal; Total Cells Counted 100
[2025-05-23 15:12] LABS: ONC Beta-2 Microglobulin 1.3 mg/L (0.6-2.4)
== END 2025-05-21 23:59 | disposition home or self-care (01) ==
LOC: LAB 10:56
PROVIDERS: PCP Nurse Practitioner Family; Visit Provider Internal Medicine Medical Oncology
DX: C91.10 Chronic lymphocytic leukemia of B-cell type not having achieved remission (principal)
CPT/HCPCS: 36415; 80053; 82232; 83615; 85007; 85025

== ENCOUNTER 2025-07-12 18:12 | Emergency (ER) | payer MEDICARE, OTHER, SELFPAY ==
[2025-07-12 18:15] VITALS: BP 110/66; PULSE 67; O2SAT 97
--- NOTE | 2025-07-12 18:16 | ED_ITS ---
<Statement entered by Pia Barahona DO - 07/12/25 21:30> I was consulted by the NELLIE, and we discussed the complexity of problems being addressed. I approve the treatment and management plan for this patient's care in the emergency department, thus performing a substantial portion of the medical decision making. Pia Barahona DO Discharge Plan Disposition Patient Disposition: Home, Self-Care Prescriptions Prescriptions: No Action oxybutynin chloride 10 mg tablet extended release 24hr 10 mg PO DAILY 90 Days Qty: 90 0RF tamsulosin [Flomax] 0.4 mg capsule 0.4 mg PO DAILY 90 Days Qty: 90 0RF haloperidol 5 mg tablet 5 mg PO DAILY Tab-A-Nilo Multivitamin w-iron 15 mg iron- 400 mcg tablet See Rx Instructions .ROUTE .COMPLEX Qty: 30 0RF Dose Instruction: TAKE 1 TABLET BY MOUTH DAILY Rx Instructions: TAKE 1 TABLET BY MOUTH DAILY acetaminophen 500 mg tablet 1,000 mg PO Q6H PRN (Reason: pain) Qty: 60 0RF docusate sodium 100 mg Tablet 100 mg PO DAILY ferrous sulfate 325 mg (65 mg iron) Tablet 325 mg PO DAILY multivitamin [TAB A NILO] Tablet 1 tab PO DAILY atorvastatin 20 mg Tablet 20 mg PO HS benztropine 0.5 mg Tablet 0.5 mg PO BID divalproex 125 mg Tablet,Delayed Release (Dr/Ec) 375 mg PO BID olanzapine [Zyprexa] 20 mg Tablet 20 mg PO HS hydroxyzine HCl 25 mg Tablet 25 mg PO QID PRN (Reason: Anxiety) albuterol sulfate [Ventolin HFA] 90 mcg/actuation Hfa Aerosol Inhaler 2 puff INHALATION Q4HP PRN (Reason: Shortness Of Breath Or Wheezing) Referrals Follow up/Referrals: Provider,Referral, MD [Primary Care Provider, Medical] - See instructions Activity Restrictions/Add. Instructions Additional Instructions/Restrictions: May use heat or ice for your knee pain. Also use heat or ice for your back pain. All of these are chronic. Clinical Impressions Clinical Impression: Chronic knee pain Qualifiers: Laterality: right Qualified Code(s): M25.561 - Pain in right knee Instructions Patient Instructions: DI for Knee Pain Print Language Print Language: Latvian Discharge ED Provider: Pia Barahona General Adult HPI <Pia Barahona DO - Last Filed: 07/12/25 21:30> General Chief complaint: PAIN Stated complaint: R Knee & Back Pain Time Seen by Provider: 07/12/25 18:16 Related Data Home Medications ?Medication ?Instructions ?Recorded ?Confirmed atorvastatin 20 mg tablet 20 mg PO HS 12/30/24 5 benztropine 0.5 mg tablet 0.5 mg PO BID 12/30/2406/11 divalproex 125 mg tablet,delayed 375 mg PO BID 5 06/11/25 release docusate sodium 100 mg tablet 100 mg PO DAILY 12/30/24 06/11/25 ferrous sulfate 325 mg (65 mg 325 mg PO DAILY 12/30/24 06/11/25 iron) tablet multivitamin 1 tab PO DAILY 12/30/2405/27 olanzapine 20 mg tablet (Zyprexa) 20 mg PO HS 12/30/24 06/11/25 haloperidol 5 mg tablet 5 mg PO DAILY 06/04/2506/11 albuterol sulfate 90 mcg/actuation 2 puff inhalation Q 4HP PRN 06/11/25 06/11/25 aerosol inhaler (Ventolin HFA) Shortness Of Breath Or Wheezing hydroxyzine HCl 25 mg tablet 25 mg PO QID PRN Anxiety 06/11/25 06/11/25 Previous Rx's ?Medication ?Instructions ?Recorded multivitamin-iron sulfate 15 See Rx Instructions .Rout e 05/15/21 mg-folic acid 400 mcg tablet .COMPLEX #30 tabs (Tab-A-Nilo Multivitamin w-iron) acetaminophen 500 mg tablet 1,000 mg (2 x 500 mg) PO Q 6H PRN 04/10/24 pain #60 tabs oxybutynin chloride 10 mg 10 mg PO DAILY 90 days #90 t abs 02/25/25 tablet,extended release 24 hr tamsulosin 0.4 mg capsule (Flomax) 0.4 mg PO DAILY 90 days #90 caps 02/25/25 Allergies Allergy/AdvReac Type Severity Reaction Status Date / Time chlorpromazine (From Allergy Unknown Verified 06/04/25 10:59 Thorazine) allergy reaction <Angelina Weems (ED), EMAIL MARKETING INTERN - Last Filed: 07/12/25 19:42> History of Present Illness HPI narrative: 59-year-old male who lives at [facility] called EMS for right knee pain. He was mad at [facility] because they only gave him ibuprofen. Patient stated that he fell but [facility] staff states that he has never fallen. Patient states that he has had this pain in his back and his knee for 2 years. Patient has obvious deformity to his right knee which we will get films of. He has nonspecific left-sided back pain. He said it hurts off and on. Denies any vertebral back pain. [facility] <Pia Barahona DO - Last Filed: 07/12/25 21:30> [facility] Disclaimer: The information contained in this section may have been updated after the patient was seen, as this information can be updated by other users. Medical History (Updated 07/12/25 @ 19:43 by Angelina Weems (ED), EMAIL MARKETING INTERN) GERD (gastroesophageal reflux disease) Hyponatremia Schizophrenia Social History Smoking Status: Current every day smoker alcohol intake: former substance use type: denies use current occupational status: disabled Travel in the last 8 weeks?: Inside the [place] housing: [facility] Have you lived/traveled outside US in past 30 days?: No Contact w/someone who lives/traveled outside US past 30 days?: No Exposure to someone with infectious disease in past 14 days?: No Do you have a fever (greater than 100.4 F or 38 C)?: No Have you tested positive for COVID-19?: No Exposed to someone with COVID-19 in past 14 days?: No Do you have a sore throat?: No Do you have a cough?: No Do you have any weakness?: No Do you have any diarrhea?: No Are you experiencing any unusual bleeding?: No Do you have any muscle aches/pain?: No Do you have any abdominal pain?: No Are you experiencing loss of taste or smell?: No Other Medical History Have you received the Flu Vaccine for this season: No Have you received the Pneumonia Vaccine: No <Angelina Weems (ED), EMA[employer] MARKETING INTERN - Last Filed: 07/12/25 19:42> ROS Obtained: Yes Systems reviewed as appropriate & no additional complaints except as documented Constitutional Constitutional: Reports as per HPI Physical Exam <Angelina Weems (ED), EMAIL MARKETING INTERN - Last Filed: 07/12/25 19:42> General General appearance: alert and in no apparent distress Head Head exam: normocephalic Eye Eye exam: Present normal appearance, PERRL and EOMI ENT ENT exam: Present normal oropharynx and mucous membranes moist Neck Neck exam: Present full ROM and trachea midline Respiratory Respiratory exam: Present normal lung sounds bilaterally Cardiovascular Cardiovascular exam: Present regular rate, normal rhythm, normal heart sounds, +S1 and +S2 Extremities Exam Extremities exam: Present full ROM, normal capillary refill and other (Obvious deformity to the right knee, obvious surgery scars) Back Exam Back exam: Present normal inspection Neurological Exam Neurological exam: Present alert and oriented X3 Skin Skin exam: Present warm, dry and intact Medical Decision Making <Pia Barahona DO - Last Filed: 07/12/25 21:30> Medical Records Screening: Per USPSTF and CDC recommendations, given the prevalence of disease in our region, it is our hospital?s policy to screen for HIV and viral Hepatitis for all patients aged 18 and over and those with ongoing risk factors. Vital Signs: 07/12/25 18:15 07/12/25 18:19 07/12/25 19:00 Temperature 98.4 F Temperature Source Oral Pulse Rate 67 49 L Pulse Rate [Right Radial] 58 L Respiratory Rate 17 Blood Pressure 110/66 104/61 L Blood Pressure [Right Arm] 110/66 Blood Pressure Mean [Right Arm] 80 Blood Pressure Source [Right Arm] Automatic Cuff Blood Pressure Position [Right Arm] Supine 02 Sat by Pulse Oximetry 97 97 97 Oxygen Delivery Method Room Air Room Air 07/12/25 19:30 07/12/25 19:56 Temperature 98.9 F Temperature Source Pulse Rate 42 L 42 L Pulse Rate [Right Radial] Respiratory Rate 16 Blood Pressure 104/58 L 104/58 L Blood Pressure [Right Arm] Blood Pressure Mean [Right Arm] Blood Pressure Source [Right Arm] Blood Pressure Position [Right Arm] 02 Sat by Pulse Oximetry 96 Oxygen Delivery Method Room Air Orders (Tests/Meds): ED MEDICATIONS Discontinued Medications Generic Name Dose Route Start Last Admin Trade Name Freq PRN Reason Stop Dose Admin Hydrocodone Bitart/Acetaminophen 2 tab 07/12/25 18:22 07/12/25 18:33 Hydrocodone/Apap 5/325 Mg Tablet PO 07/12/25 18:23 2 tab ONCE ONE Administration Methocarbamol 1,000 mg 07/12/25 18:23 07/12/25 18:33 Methocarbamol 500mg Tablet PO 07/12/25 18:24 1,000 mg ONCE ONE Administration ORDERS Category Date Time Status Knee XR right 3 views [XR knee RT 3V] Stat Exams 07/12/25 18:22 Taken Medical Decision Narrative: patient is a 59-year-old male presenting to the emergency department for evaluation of right knee pain and nonspecific back pain. Patient has had no trauma, no IV drug use, no bowel or bladder changes no saddle paresthesia. patient is hemodynamically stable and nontoxic-appearing upon arrival, afebrile. Differential diagnosis includes muscle spasm of back, chronic right knee pain, fracture, dislocation. Patient will be given pain meds muscle relaxer for pain. No workup will be required as he has no red flag back symptoms or any symptoms. No swelling or redness. No other symptoms. These problems are chronic and he is just asking for something to help with the pain. Patient x-ray shows all chronic changes. <Angelina Weems (ED), EMAIL MARKETING INTERN - Last Filed: 07/12/25 19:42> Wilner Inquiry Pt receiving controlled substance: Yes Wilner was queried for this patient: No Risks and benefits of using a controlled substance: were discussed with pt by me Vital Signs: 07/12/25 18:15 07/12/25 18:19 07/12/25 19:00 Temperature 98.4 F Temperature Source Oral Pulse Rate 67 49 L Pulse Rate [Right Radial] 58 L Respiratory Rate 17 Blood Pressure 110/66 104/61 L Blood Pressure [Right Arm] 110/66 Blood Pressure Mean [Right Arm] 80 Blood Pressure Source [Right Arm] Automatic Cuff Blood Pressure Position [Right Arm] Supine 02 Sat by Pulse Oximetry 97 97 97 Oxygen Delivery Method Room Air Room Air 07/12/25 19:30 07/12/25 19:56 Temperature 98.9 F Temperature Source Pulse Rate 42 L 42 L Pulse Rate [Right Radial] Respiratory Rate 16 Blood Pressure 104/58 L 104/58 L Blood Pressure [Right Arm] Blood Pressure Mean [Right Arm] Blood Pressure Source [Right Arm] Blood Pressure Position [Right Arm] 02 Sat by Pulse Oximetry 96 Oxygen Delivery Method Room Air Orders (Tests/Meds): ED MEDICATIONS Discontinued Medications Generic Name Dose Route Start Last Admin Trade Name Freq PRN Reason Stop Dose Admin Hydrocodone Bitart/Acetaminophen 2 tab 07/12/25 18:22 07/12/25 18:33 Hydrocodone/Apap 5/325 Mg Tablet PO 07/12/25 18:23 2 tab ONCE ONE Administration Methocarbamol 1,000 mg 07/12/25 18:23 07/12/25 18:33 Methocarbamol 500mg Tablet PO 07/12/25 18:24 1,000 mg ONCE ONE Administration ORDERS Category Date Time Status Knee XR right 3 views [XR knee RT 3V] Stat Exams 07/12/25 18:22 Taken Medical Decision Narrative: patient is a 59-year-old male presenting to the emergency department for evaluation of right knee pain and nonspecific back pain. Patient has had no trauma, no IV drug use, no bowel or bladder changes no saddle paresthesia. patient is hemodynamically stable and nontoxic-appearing upon arrival, afebrile. Differential diagnosis includes muscle spasm of back, chronic right knee pain. Patient will be given pain meds muscle relaxer for pain. No workup will be required as he has no red flag back symptoms or any symptoms. No swelling or redness. No other symptoms. These problems are chronic and he is just asking for something to help with the pain. Patient x-ray shows all chronic changes. Critical Care <Angelina Weems (ED), EMAIL MARKETING INTERN - Last Filed: 07/12/25 19:42> Critical Care Time Critical Care Time: No
[2025-07-12 18:19] VITALS: BP 110/66; PULSE 58; RESP 17; TEMP 36.9; O2SAT 97; BMI 17.7
--- NOTE | 2025-07-12 18:22 | XR_ITS ---
PROCEDURE INFORMATION: Exam: XR Right Knee Exam date and time: 07/12/2025 6:39 PM Age: 59 years old Clinical indication: Pain; Knee; Right TECHNIQUE: Imaging protocol: Radiologic exam of the right knee. Views: 3 views. Total images: 3 COMPARISON: CR XR KNEE RT 3V 12/30/2024 12:48 PM FINDINGS: Bones/joints: Osseous demineralization. Extensive end-stage tricompartment degenerative arthritis with significant joint space narrowing, articular surface irregularity, and large enthesophytes, similar to the prior exam. Trace joint effusion, improved. Stable metallic density in the medial femoral condyle. No acute fracture or joint dislocation. Soft tissues: Stable soft tissue opacity lateral to the proximal tibia. IMPRESSION: 1. No acute osseous abnormality. 2. Extensive end-stage tricompartment degenerative arthritis. 3. Trace joint effusion, improved. 4. Stable soft tissue opacity lateral to the proximal tibia.
--- OUTSIDE RECORDS SUMMARY | 2025-07-12 18:27 | XMS_ITS | Patient Health Record ---
Author Organization [facility] Address [address] [place] [address] Care Team Providers Care Highway Maintenance Technician Name Role Phone Kati Castrejon Unavailable [phone] Reason For Referral No Information Problems Problem Type SNOMED Code ICD Code Onset Dates Problem Status W/U Status Risk Notes Problem Acute exacerbation of subchronic schizoaffective schizophrenia (637072306) Schizoaffective disorder, subchronic with acute exacerbation (295.73) Active confirmed Plan Of Treatment No Information Insurance Providers Payer Name Payer Address Payer Phone Subscriber Number Group Number Insured Name Patient Relationship to Insured Coverage Start Date Coverage End Date Administar [facility] [address] [facility] [place], [place] [id number] CLAYTON TYLER Self - patient is the insured [facility] [address] [place] [address] [id number] CLAYTON TYLER Self - patient is the insured
--- OUTSIDE RECORDS SUMMARY | 2025-07-12 18:27 | XMS_ITS | Clinical Summary ---
Author Organization [facility] Address [address] [place] [address] Phone Care Team Providers Care Rack Puncher Name Role Phone Unavailable Primary Care Provider Unavailabl e Allergies No known active allergies Medications * This document contains information received from the source organization and may not represent a complete record from that organization. PARoxetine (PAXIL) 10 mg Oral Tablet TAKE 1 TABLET BY MOUTH EVERY MORNING 30 Tablet 11 4 Active OLANZapine (ZYPREXA) 20 mg Oral Tablet TAKE 1 TABLET BY MOUTH AT BEDTIME 30 Tablet 11 5 Active OLANZapine (ZYPREXA) 20 mg Oral Tablet TAKE 1 TABLET BY MOUTH AT BEDTIME 30 Tablet 11 4 06/13/20 25 Discontinued Active Problems Problem Noted Date Diagnosed Date [...] COVID-19 Vaccine (1 - 2023-2 5 season) 2025 Influenza Vaccine (#1) 2025 Hepatitis B Vaccine Aged Out No longe r eligible based on patient's age to complete this topic Meningococcal B Vaccine Aged Out No l onger eligible based on patient's age to complete this topic Insurance [facility] [address] MEDIC[place] [address]
[2025-07-12] MEDS: HYDROCODONE/APAP 5/325 MG TABLET 2 TAB PO (18:33)
[2025-07-12] MEDS: METHOCARBAMOL 500MG TABLET 1000 MG PO (18:33)
[2025-07-12 19:00] VITALS: BP 104/61; PULSE 49; O2SAT 97
[2025-07-12 19:30] VITALS: BP 104/58; PULSE 42; O2SAT 96
[2025-07-12 19:56] VITALS: BP 104/58; PULSE 42; RESP 16; TEMP 37.2; O2SAT 96
--- NOTE | 2025-07-12 20:03 | PC.NURSE ---
darline contacted and made aware of patient being discharged with [facility]
== END 2025-07-12 20:03 | disposition home or self-care (01) ==
PROVIDERS: Emergency Provider Student in an Organized Health Care Education/Training Program
DX: M25.561 Pain in right knee (principal); M54.9 Dorsalgia, unspecified; F17.200 Nicotine dependence, unspecified, uncomplicated
CPT/HCPCS: 73562; 99283

== ENCOUNTER 2025-07-24 00:54 | Observation (INO) | payer MEDICARE, OTHER, SELFPAY ==
[2025-07-24] VITALS (17 sets, daily range): BP systolic 99–136; BP diastolic 57–73; PULSE 49–77; RESP 10–18; TEMP 36.7–37.1; O2SAT 95–99; BMI 17.9; BMI 18.6
--- NOTE | 2025-07-24 00:50 | CT_ITS ---
PROCEDURE INFORMATION: Exam: CT Abdomen And Pelvis With Contrast Exam date and time: 07/24/2025 2:33 AM Age: 60 years old Clinical indication: Abdominal pain; Additional info: Nausea, vom yesterday, constipated, dysuria TECHNIQUE: Imaging protocol: Computed tomography of the abdomen and pelvis with contrast. 3D rendering (Not supervised by radiologist): MIP and/or 3D reconstructed images were created by the technologist. Radiation optimization: All CT scans at this facility use at least one of these dose optimization techniques: automated exposure control; mA and/or kV adjustment per patient size (includes targeted exams where dose is matched to clinical indication); or iterative reconstruction. Contrast material: ISOVUE; Contrast volume: 70 ml; Contrast route: IV; COMPARISON: CT ABDOMEN PELVIS W CON 02/09/2025 7:47 PM FINDINGS: Liver: Normal. No mass. Gallbladder and biliary ducts: The gallbladder is contracted no stones are identified. Pancreas: Normal. No ductal dilation. Spleen: Normal. No splenomegaly. Adrenal glands: Normal. No mass. Kidneys and ureters: Normal. No hydronephrosis. Stomach and bowel: Moderate retained stool throughout the colon, no ileus or obstruction noted. Appendix: No evidence of appendicitis. Intraperitoneal space: Unremarkable. No free air. No significant fluid collection. Vasculature: Unremarkable. No abdominal aortic aneurysm. Lymph nodes: Unremarkable. No enlarged lymph nodes. Urinary bladder: The bladder is diffusely thickened moderately distended and demonstrates increased enhancement. Reproductive: Unremarkable as visualized. Bones/joints: Unremarkable. No acute fracture. Soft tissues: Unremarkable. IMPRESSION: 1. Distended bladder with diffuse wall thickening with increased enhancement suspect cystitis, consider urinalysis. 2. Moderate retained stool, no ileus or obstruction.
--- NOTE | 2025-07-24 00:50 | CT_ITS ---
PROCEDURE INFORMATION: Exam: CTA Chest With Contrast Exam date and time: 07/24/2025 2:33 AM Age: 60 years old Clinical indication: Pain; Chest pressure; Additional info: R cp, cough 1w TECHNIQUE: Imaging protocol: Computed tomographic angiography of the chest with contrast. Exam focused on the arteries. 3D rendering (Not supervised by radiologist): MIP and/or 3D reconstructed images were created by the technologist. Radiation optimization: All CT scans at this facility use at least one of these dose optimization techniques: automated exposure control; mA and/or kV adjustment per patient size (includes targeted exams where dose is matched to clinical indication); or iterative reconstruction. Contrast material: ISOVUE; Contrast volume: 70 ml; Contrast route: INTRAVENOUS (IV); COMPARISON: CR XR CHEST 2V 03/13/2025 11:59 AM FINDINGS: Pulmonary arteries: Normal. No pulmonary emboli. Aorta: Unremarkable. No aortic aneurysm. No aortic dissection. Lungs: Unremarkable. No consolidation. No masses. Pleural spaces: Unremarkable. No pneumothorax. No pleural effusion. Heart: No coronary calcification is noted. No cardiomegaly. No pericardial effusion. Lymph nodes: Unremarkable. No enlarged lymph nodes. Bones/joints: Unremarkable. No acute fracture. Soft tissues: Unremarkable. IMPRESSION: No evidence of pulmonary embolus or other acute process.
--- NOTE | 2025-07-24 00:54 | ECG_ITS ---
APPROVED REPORT Exam: Resting ECG HR:89 bpm ECG Measurements Heart Rate 89 AXES CO 166 P 68 QRSd 85 QRS 93 QT 377 T 59 QTc 424 Conclusion SINUS RHYTHM BORDERLINE RIGHT AXIS DEVIATION [QRS AXIS > 90] POSSIBLE RIGHT VENTRICULAR CONDUCTION DELAY [RSR (QR) IN V1/V2] NONSPECIFIC ST ELEVATION [0.05+ mV ST ELEVATION] No STEMI Electronically signed by : JANNETH PALMA, 07/24/2025 06:52:46
--- NOTE | 2025-07-24 00:59 | ED_ITS ---
Discharge Plan Disposition Patient Disposition: Admitted Condition: Good Clinical Impressions Clinical Impression: Acute UTI, Chronic lymphocytic leukemia, Constipation, Fecal impaction Discharge ED Provider: Joan Hays Adult HPI General Chief complaint: Abdominal Pain Stated complaint: Abdominal Pain Time Seen by Provider: 07/24/25 00:56 History of Present Illness HPI narrative: 60-year-old male with history of renal cysts, bladder incontinence, previous hematuria, bladder mass, arthritis who lives at [facility] presents to the ER by EMS for concerns of abdominal pain. Reportedly patient initially called for right sided chest pain and EMS reports he was complaining of right sided chest pain, they administered 324 of aspirin and 0.4 of nitro once. Upon arrival to the ER patient is not complaining of chest pain and states his abdomen is what is bothering him the most. He reports 1 episode of emesis yesterday, no intake of either food or drink today. He also reports he is having difficulty peeing and it is painful when he tries to urinate. He denies any blood in the urine. He is not sure if he takes any medications for his bladder or prostate. He reports no pain in the upper abdomen, no difficulty breathing. He does smoke. Patient reports he has had ongoing cough for the last week as well as nasal congestion, no sore throat but states his voice is hoarse compared to baseline from all the coughing. Denies difficulty swallowing or breathing, denies pleuritic pain, no hemoptysis, cough is nonproductive, denies fevers or chills. No headache, dizziness, numbness, tingling, or weakness. Patient had reported to EMS he was concerned about constipation but reports last bowel movement this morning. Reports no other medications prior to arrival, no other complaints or concerns. Related Data Home Medications ?Medication ?Instructions ?Recorded ?Confirmed atorvastatin 20 mg tablet 20 mg PO HS 12/30/24 5 benztropine 0.5 mg tablet 0.5 mg PO BID 12/30/2406/11 divalproex 125 mg tablet,delayed 375 mg PO BID 5 06/11/25 release docusate sodium 100 mg tablet 100 mg PO DAILY 12/30/24 06/11/25 ferrous sulfate 325 mg (65 mg 325 mg PO DAILY 12/30/24 06/11/25 iron) tablet multivitamin 1 tab PO DAILY 12/30/2405/27 olanzapine 20 mg tablet (Zyprexa) 20 mg PO HS 12/30/24 06/11/25 haloperidol 5 mg tablet 5 mg PO DAILY 06/04/2506/11 albuterol sulfate 90 mcg/actuation 2 puff inhalation Q 4HP PRN 06/11/25 06/11/25 aerosol inhaler (Ventolin HFA) Shortness Of Breath Or Wheezing hydroxyzine HCl 25 mg tablet 25 mg PO QID PRN Anxiety 06/11/25 06/11/25 Previous Rx's ?Medication ?Instructions ?Recorded multivitamin-iron sulfate 15 See Rx Instructions .Rout e 05/15/21 mg-folic acid 400 mcg tablet .COMPLEX #30 tabs (Tab-A-Rubi Multivitamin w-iron) acetaminophen 500 mg tablet 1,000 mg (2 x 500 mg) PO Q 6H PRN 04/10/24 pain #60 tabs oxybutynin chloride 10 mg 10 mg PO DAILY 90 days #90 t abs 02/25/25 tablet,extended release 24 hr tamsulosin 0.4 mg capsule (Flomax) 0.4 mg PO DAILY 90 days #90 caps 02/25/25 Allergies Allergy/AdvReac Type Severity Reaction Status Date / Time chlorpromazine (From Allergy Unknown Verified 06/04/25 10:59 Thorazine) allergy reaction [facility] Disclaimer: The information contained in this section may have been updated after the patient was seen, as this information can be updated by other users. Medical History (Updated 07/24/25 @ 03:23 by Joan Hays MD) GERD (gastroesophageal reflux disease) Hyponatremia Schizophrenia Social History Smoking Status: Current every day smoker alcohol intake: former substance use type: denies use current occupational status: disabled Travel in the last 8 weeks?: Inside the [place] housing: assisted Do you have any abdominal pain?: Yes Other Medical History Have you received the Flu Vaccine for this season: No Have you received the Pneumonia Vaccine: No ROS Obtained: Yes Systems reviewed as appropriate & no additional complaints except as documented per HPI Physical Exam General General appearance: alert and in no apparent distress Comment: Chronically ill-appearing, appears older than stated age, borderline cachectic Head Head exam: atraumatic and normocephalic Eye Eye exam: Present PERRL and EOMI ENT ENT exam: Present normal oropharynx (No erythema, tonsillomegaly, exudates, or mass appreciated), mucous membranes moist and other (Voice slightly hoarse but airway patent, tolerating secretions, no hot potato voice) Neck Neck exam: Present normal inspection and full ROM; Absent lymphadenopathy Chest Chest inspection: Present normal inspection and symmetric chest wall rise; Absent tenderness Respiratory Respiratory exam: Present other (Breath sounds mildly diminished throughout but no adventitious sounds, 95% on room air on arrival with no respiratory distress); Absent respiratory distress, wheezes, stridor, accessory muscle use or prolonged expiratory phase Cardiovascular Cardiovascular exam: Present regular rate and normal rhythm Abdominal Exam Abdominal exam: Present soft, tenderness (Diffuse lower abdomen, suprapubic) and hernia (Soft ventral wall hernia appreciated with no evidence of strangulation); Absent distention, guarding or rebound Extremities Exam Extremities exam: Absent tenderness or edema Back Exam Back exam: Absent CVA tenderness (R) or CVA tenderness (L) Neurological Exam Neurological exam: Present alert and oriented X3; Absent motor sensory deficit Psychiatric Psychiatric exam: Present normal affect and normal mood Skin Skin exam: Present warm and dry Medical Decision Making Medical Records Medical records reviewed: Yes I reviewed the patient's medical records. Screening: Per USPSTF and CDC recommendations, given the prevalence of disease in our region, it is our hospital?s policy to screen for HIV and viral Hepatitis for all patients aged 18 and over and those with ongoing risk factors. [place] Inquiry Pt receiving controlled substance: No Vital Signs: 07/24/25 00:48 07/24/25 01:06 07/24/25 01:15 Temperature 98.0 F Temperature Source Oral Pulse Rate 60 Pulse Rate [Left Radial] 77 Respiratory Rate 16 15 14 Blood Pressure [Right Arm] 115/73 Blood Pressure Mean [Right Arm] 87 Blood Pressure Source [Right Arm] Automatic Cuff Blood Pressure Position [Right Arm] Supine 02 Sat by Pulse Oximetry 95 96 Oxygen Delivery Method Room Air 07/24/25 01:52 Temperature Temperature Source Pulse Rate 50 L Pulse Rate [Left Radial] Respiratory Rate Blood Pressure [Right Arm] Blood Pressure Mean [Right Arm] Blood Pressure Source [Right Arm] Blood Pressure Position [Right Arm] 02 Sat by Pulse Oximetry 98 Oxygen Delivery Method Lab Data Lab Results 07/24/25 00:55: WBC 25.1 H*, RBC 3.62 L, Hgb 12.6 L, Hct 35.2 L, MCV 97.2 H, MCH 34.8 H, MCHC 35.8 H, RDW 13.2, Plt Count 201, MPV 10.4, Neut % (Auto) 14.0 L, L ymph % (Auto) 81.7 H, Angelina % (Auto) 2.9, Eos % (Auto) 1.1, Baso % (Auto) 0.2, Neut # (Auto) 3.5, Lymph # (Auto) 20.5 H, Angelina # (Auto) 0.7, Eos # (Auto) 0.3, Baso # (Auto) 0.1, Total Counted 100, Neutrophils % (Manual) 14 L, Lymphocytes % (Manual) 83 H, Monocytes % (Manual) 2, Eosinophils % (Manual) 1, Platelet Estimate Normal, RBC Morphology Normal, PT 11.9, INR 1.08, VBG pH 7.43 H, VBG pCO2 42.6, VBG pO2 86.2 H, VBG HCO3 27.5, VBG Total CO2 28.8 H, VBG O2 Saturation 96.9 H, VBG Base Excess 3.2 H, VBG Lactic Acid 1.3, Sodium 128 L, Potassium 4.4, Chloride 94 L, Carbon Dioxide 28, Anion Gap 10.4, BUN 16, C reatinine 0.60 L, Estimated Creat Clear 61, Estimated GFR 137, Est GFR ( Amer) 165, Glucose 101 H, Calcium 9.0, Total Bilirubin 0.6, AST 31, ALT 20, Alkaline Phosphatase 98, Troponin I 0.01, Total Protein 7.0, Albumin 3.2 L, G lobulin 3.8 H, Albumin/Globulin Ratio 0.8 L 07/24/25 01:06: Urine Color Yellow, Urine Appearance Cloudy, Urine pH 7.5, Ur Specific [place] 1.015, Urine Protein Negative, Urine Glucose (UA) Negative, Urine Ketones Negative, Urine Blood 1+ A, Urine Nitrate Positive A, Urine Bilirubin Negative, Urine Urobilinogen 0.2, Ur Leukocyte Esterase 3+ A, Urine RBC None, Urine WBC Tntc, Ur Squamous Epith Cells None, Urine Bacteria 1+ 07/24/25 00:55 07/24/25 00:55 Orders (Tests/Meds): ED MEDICATIONS Discontinued Medications Generic Name Dose Route Start Last Admin Trade Name Ara PRN Reason Stop Dose Admin Lactated Ringer's 1,000 mls @ 999 mls/hr 07/24/25 00:50 07/24/25 02:26 Lactated Ringer's 1000 Ml Bag IV 07/24/25 01:50 Infused .Q1H1M ONE Infusion Ceftriaxone Sodium 2 gm/ 100 mls @ 200 mls/hr 07/24/25 01:27 07/24/25 02:26 Sodium Chloride IV 07/24/25 01:56 200 mls/hr ONCE ONE Administration Iopamidol 70 ml 07/24/25 02:42 07/24/25 02:43 Iopamidol-370 (76%);100ml Bottle IV 07/24/25 02:43 70 ml ONCE ONE Administration Magnesium Citrate 296 ml 07/24/25 03:00 07/24/25 03:03 Magnesium Citrate 296ml Bottle PO 07/24/25 03:01 296 ml ONCE ONE Administration Ondansetron HCl 4 mg 07/24/25 00:50 07/24/25 01:14 Ondansetron 4mg/2ml Vial IV 07/24/25 00:51 4 mg ONCE ONE Administration Sodium Chloride 50 ml 07/24/25 02:42 07/24/25 02:43 0.9 % Sodium Chloride 50 Ml Vial IV 07/24/25 02:43 50 ml ONCE ONE Administration Sodium Chloride 10 ml 07/24/25 02:42 07/24/25 02:43 Sodium Chloride 0.9% 10ml Syr (Rad Only) IV 07/24/25 02:43 10 ml ONCE ONE Administration ORDERS Category Date Time Status CT abdomen pelvis w con Stat Cat Scan 07/24/25 00:[address] angio chest PE protocol Stat Cat Scan 07/24/25 00:50 Completed CBC w/Auto Diff [Complete Blood Count Auto Diff] Stat Lab 07/24/25 00:55 Completed CMP [Comprehensive Metabolic Panel] Stat Lab 07/24/25 00:55 Completed Full Resp Panel w/COVID ([facility]) Routine Lab 07/24/25 01:26 Received HIV Combo Stat Lab 07/24/25 00:55 Received Hepatitis C Ab Qual. W/ RFX Stat Lab 07/24/25 00:55 Received PT INR [Prothrombin Time INR] Stat Lab 07/24/25 00:55 Completed Trop I [Troponin I] Stat Lab 07/24/25 00:55 Completed Troponin I Q3H Lab 07/24/25 04:00 Ordered Troponin I Q3H Lab 07/24/25 07:00 Ordered Urinalysis and Microscopic Stat Lab 07/24/25 01:06 Completed Blood Culture Stat Micro 07/24/25 01:55 Received Urine Culture Stat Micro 07/24/25 01:06 Received VBG [Venous Blood Gas] Stat RT 07/24/25 00:55 Completed Medical Decision Narrative: In summary, this 60-year-old male with comorbidities described in the HPI as well as social determinants of health including active smoking presents to the emergency department today with abdominal pain, difficulty urinating, painful urination, concerns of nausea, constipation, and reported right sided chest pain prior to arrival now resolved in the ER. On initial evaluation patient is hemodynamically stable, afebrile, borderline cachectic in appearance, appears older than stated age, no respiratory distress, saturating 95% on room air, breath sounds are mildly diminished throughout but no adventitious sounds appreciated, no chest wall tenderness or evidence of trauma, chest pain is not reproducible on exam and patient has no pain at this time. Abdominal exam with small ventral wall hernia that demonstrates no findings of strangulation, he does have diffuse lower abdominal/suprapubic tenderness with no rebound or guarding, no peritonitic findings, no CVA tenderness. Differential diagnosis includes but is not limited to viral infection, ACS, PE, pneumonia, urinary tract infection, constipation, fecal impaction, bowel obstruction, electrolyte abnormality, dehydration, kidney dysfunction, urinary retention, urinary obstruction, among others. Bladder scan performed by nursing staff demonstrated greater than 272 mL, patient attempted to urinate but only produced a small amount, bladder scan after this was the same. In and out cath being performed for symptomatic relief. Based on these concerns, I ordered hematologic and serum labs, urinalysis, CT PE, cardiac workup, CT abdomen pelvis. ECG personally interpreted demonstrates normal sinus rhythm, rate 89, borderline right axis deviation, normal VT and QTc, slight upsloping of ST segments in V2- V6 as well as lead I, 2, but no J-point elevation, no T wave inversion, no STEMI. Will repeat ECG. Patient received IV fluids, Zofran initially for treatment. Labs personally reviewed demonstrate VBG pH 7.43, no hypercarbia, normal lactic on VBG. UA positive for leukocyte esterase and nitrate as well as small blood, with patient's symptoms this is concerning for urinary tract infection. Blood cultures ordered and Rocephin ordered for treatment. CBC notable for leukocytosis WBC 25.1 with significant lymphocyte predominance, review of records from oncology demonstrates patient has confirmed CLL with most recent appointment in May and plan for follow-up 3 months from then with no plan for immediate treatment. No significant change in WBCs, anemia stable and nonactionable, PT/INR normal, patient has hyponatremia slightly worsened from previous but not acutely actionable, no evidence of kidney dysfunction, initial troponin 0.01, in the setting of no current chest pain and reassuring ECG this is nonactionable, serial troponin is pending. CTA PE personally interpreted demonstrates no large segmental or subsegmental PE, no obvious pneumonia, see radiology read for final interpretation. CT abdomen pelvis demonstrates bladder wall thickening, enhancement of testicle which I believed to be a testicular prosthesis, obvious constipation. See radiology read for final interpretation. I reach out to the reading radiologist and discussed the patient's bladder imaging with him because on previous studies it has been noted that patient had asymmetric thickening/concern for potential neoplasm but the reading radiologist states he sees no evidence of this at this time. Soapsuds enema was administered to the patient after fecal disimpaction. Mag citrate also administered. Patient tolerated enema and disimpaction well. Unfortunately due to living/care circumstances at [facility] I do not believe sending this patient back with a bowel cleanout regimen and antibiotics is going to lead to a good outcome for this patient and I believe he would best benefit from admission to the hospital for bowel cleanout, continued UTI treatment, and establishing a normal bowel regimen. Patient is agreeable to this. I discussed this case with the hospitalist including my concerns about the ability of this patient to follow a strict bowel regimen for bowel cleanout given the living situation at his current facility, she graciously accepted the patient for admission for continued management. Critical Care Critical Care Time Critical Care Time: No
[2025-07-24 01:07] LABS: Lactate Venous 1.3 mmol/L (0.4-2.0); VBG HCO3 27.5 mmol/L (23-30); VBG PCO2 42.6 mmol/L (35-51); VBG PH 7.43 mmol/L (7.31-7.41); VBG PO2 86.2 mmol/L (28-40)
[2025-07-24 01:11] LABS: Microscopic, Urine URINE MICROSCOPIC (MICROSCOPIC)
[2025-07-24] MEDS: ONDANSETRON 4MG/2ML VIAL 4 MG IV (01:14)
[2025-07-24] MEDS: LACTATED RINGERS 1000ML 1,000 ML 999 ML IV (01:14)
[2025-07-24 01:16] LABS: Bilirubin,Urine Negative (Negative); Color,Urine YELLOW (Yellow); Glucose,Urine (UA) Negative (Negative); Ketones,Urine Negative (Negative); Leukocyte Esterase,Urine 3+ (Negative); PH,Urine 7.5 (5.0-8.5); Protein,Urine Negative (Negative); Specific Gravity, Urine 1.015 (1.005-1.030); Urobilinogen,Urine 0.2 EU/dl (0.2)
[2025-07-24 01:24] LABS: INR 1.08 (0.9-1.1); Prothrombin Time 11.9 seconds (10.1-12.5)
--- OUTSIDE RECORDS SUMMARY | 2025-07-24 01:26 | XMS_ITS | Patient Health Record ---
Author Organization [facility] Address [address] [place] [address] Care Team Providers Care Hand Drawer In Helper Name Role Phone Kati Castrejon Unavailable [phone] Reason For Referral No Information Problems Problem Type SNOMED Code ICD Code Onset Dates Problem Status W/U Status Risk Notes Problem Acute exacerbation of subchronic schizoaffective schizophrenia (715869188) Schizoaffective disorder, subchronic with acute exacerbation (295.73) Active confirmed Plan Of Treatment No Information Insurance Providers Payer Name Payer Address Payer Phone Subscriber Number Group Number Insured Name Patient Relationship to Insured Coverage Start Date Coverage End Date Administar [facility] [address] [facility] [place] [id number] CLAYTON TYLER Self - patient is the insured [facility] [address] [place] [address] [id number] CLAYTON TYLER Self - patient is the insured
--- OUTSIDE RECORDS SUMMARY | 2025-07-24 01:26 | XMS_ITS | Clinical Summary ---
Author Organization Neal Gallito [facility] Address [address] [place] [address] Phone Care Team Providers Care A Class Lineman Name Role Phone Unavailable Primary Care Provider [...] BY MOUTH AT BEDTIME 30 Tablet 11 06/13/2025 Active Active Problems Problem Noted Date Diagnosed [...] of 2) 2013 COVID-19 Vaccine (1 - 2024-2 6 season) 2025 Influenza Vaccine (#1) 2025 Hepatitis B Vaccine Aged Out No longe r eligible based on patient's age to complete this topic Meningococcal B Vaccine Aged Out No l onger eligible based on patient's age to complete this topic Insurance [employer] [facility] [place] [address] [address]
[2025-07-24 01:34] LABS: Bacteria,Urine 1+ /lpf; WBC,Urine TNTC #/hpf (0-3)
[2025-07-24 01:37] LABS: Hematocrit 35.2 % (42.0-52.0); Hemoglobin 12.6 g/dL (14.1-18.0); Immature Granulocytes % 0.1 %; Mean Corpuscular HGB Conc 35.8 g/dL (31.8-35.4); Mean Corpuscular Hemoglobin 34.8 pg (27.0-31.2); Mean Corpuscular Volume 97.2 fl (80-94); Nucleated Red Blood Cells % 0 %; Platelet Count 201 K/mm3 (142-424); Red Blood Count 3.62 M/mm3 (4.60-6.20); Red Cell Distribution Width-SD 47.2 fL; White Blood Count 25.1 K/mm3 (4.8-10.8)
[2025-07-24 01:45] LABS: Adenovirus,PCR Not Detected (NotDetected); Chlamydophila Pneumoniae, PCR Not Detected (NotDetected); Coronavirus 19, PCR Not Detected (NotDetected); Coronovirus HKU1,PCR Not Detected (NotDetected); Influenza A, PCR Not Detected (NotDetected); Influenza AH1, 2009 Not Detected (NotDetected); Influenza AH1, PCR Not Detected (NotDetected); Influenza AH3,PCR Not Detected (NotDetected); Influenza B, PCR Not Detected (NotDetected); Mycoplasma Pneumoniae, PCR Not Detected (NotDetected); Parainfluenza 1, PCR Not Detected (NotDetected); Parainfluenza 2, PCR Not Detected (NotDetected); Parainfluenza 3, PCR Not Detected (NotDetected); Parainfluenza 4, PCR Not Detected (NotDetected)
[2025-07-24 02:20] LABS: Alanine Aminotransferase 20 U/L (12-78); Albumin Level 3.2 g/dl (3.5-5.0); Albumin/Globulin Ratio 0.8 (1.1-1.8); Alkaline Phosphatase 98 U/L (38-126); Anion Gap 10.4 mEq/L (5-15); Aspartate Amino Transferase 31 U/L (17-59); Bilirubin,Total 0.6 mg/dl (0.2-1.3); Blood Urea Nitrogen 16 mg/dl (9-20); Calcium 9.0 mg/dl (8.4-10.2); Carbon Dioxide 28 mmol/L (22.0-30.0); Chloride 94 mmol/L (98-107); Creatinine Clearance Estimated 61 mL/min (50-200); Creatinine,Serum 0.60 mg/dl (0.66-1.25); Estimated Glomerular Filt Rate 137 ml/min (>60); GFR (African American) 165 ML/MIN (>60); Globulin 3.8 g/dL (1.3-3.2); Glucose 101 mg/dl (74-100); Potassium 4.4 mmoL/L (3.5-5.1); Sodium 128 mmol/L (136-145); Total Protein,Serum 7.0 g/dl (6.3-8.2)
[2025-07-24 02:22] LABS: Total Cells Counted 100
[2025-07-24 02:23] LABS: RBC Morphology Normal
[2025-07-24 02:32] LABS: Troponin I 0.01 ng/ml (0.00-0.034)
[2025-07-24] MEDS: 0.9 % SODIUM CHLORIDE 50 ML VIAL IV (02:43)
[2025-07-24] MEDS: SODIUM CHLORIDE 0.9% 10ML SYR (RAD ONLY) 10 ML IV (02:43)
[2025-07-24] MEDS: IOPAMIDOL-370 (76%);100ML BOTTLE 70 ML IV (02:43)
[2025-07-24] MEDS: MAGNESIUM CITRATE 296ML BOTTLE 296 ML PO (03:03)
--- NOTE | 2025-07-24 03:42 | PC.NURSE ---
superintendent measurement [facility]
--- NOTE | 2025-07-24 03:47 | ECG_ITS ---
APPROVED REPORT Exam: Resting ECG HR:63 bpm ECG Measurements Heart Rate 63 AXES OH 225 P 75 QRSd 73 QRS 88 QT 397 T 61 QTc 404 Conclusion SINUS RHYTHM WITH FIRST DEGREE AV BLOCK No STEMI Electronically signed by : JANNETH PALMA, 07/24/2025 06:53:09
--- NOTE | 2025-07-24 03:58 | PC.NURSE ---
Pt arrived to floor via stretcher @[id number]
[2025-07-24 04:02] LABS: Hepatitis C Ab Qual. W/ RFX NEGATIVE (Negative)
--- NOTE | 2025-07-24 04:02 | P.HP_ITS ---
<Statement entered by Flaco Davis MD - 07/28/25 15:36> Agree with plan of care as outlined by the [employer] [facility]. History of Present Illness *Admission Date: 07/24/25 *Reason for visit:: Abdominal pain and right-sided chest pain *History of present illness: Patient is a 60-year-old male with past medical history significant for CLL, bladder incontinence, bladder mass, arthritis of the right knee. Presents to [facility] secondary to complaint of right-sided chest pain and abdominal pain. Patient resides at [facility]. EMS was notified and due to his chest pain he received 324 mg of aspirin and 0.4 of nitro. ED workup included laboratory studies and imaging. CTA obtained to rule out a pulmonary embolism, unremarkable for PE and or any other acute findings. Patient noted nausea and vomiting. CT abdomen obtained secondary to abdominal pain. Imaging noted moderate stool and cystitis. Rocephin initiated while in the emergency department along with attempting fecal disimpaction. Received soapsuds enema in the emergency department. ED provider noted minimal success but was able to move a small amount of stool. Respiratory pathogen panel obtained as well due to cough. Possibly correlating with right sided chest discomfort. Pathogen panel currently pending. Hemodynamically stable. Denies fever, chills. ED workup included laboratory studies and imaging as noted above: Significant laboratory studies CLL 25.1, sodium 128, chloride 94, UA with 1+ blood, urine nitrate positive, urine leukocyte esterase 3+, urine bacteria 1+. I personally reviewed imaging studies, which included chest CTA, showing no evidence of pul monary embolus or other acute process. CT abdomen and pelvis showing, distended bladder with diffuse wall thickening with increased enhancement suspect cystitis and moderate retained stool, no ileus or obstruction. [facility] Disclaimer: The information contained in this section may have been updated after the patient was seen, as this information can be updated by other users. Medical History GERD (gastroesophageal reflux disease) Hyponatremia Schizophrenia Social History (Updated 07/24/25 @ 04:46 by Loree Miller RN) Smoking Status: Current every day smoker alcohol intake: former substance use type: denies use current occupational status: disabled Travel in the last 8 weeks?: Inside the [place] housing: [facility] Contact w/someone who lives/traveled outside US past 30 days?: No Exposure to someone with infectious disease in past 14 days?: No Do you have a fever (greater than 100.4 F or 38 C)?: No Have you tested positive for COVID-19?: No Do you have any abdominal pain?: Yes Other Medical History Have you received the Flu Vaccine for this season: No Have you received the Pneumonia Vaccine: No Review of Systems Review of Systems Review of systems:: pertinent systems reviewed and negative unless documented below Constitutional Constitutional: Reports system reviewed and no additional complaints, except as documented Eyes Eyes: Reports system reviewed and no additional complaints, except as documented ENT Ears, Nose, Mouth, and Throat: Reports system reviewed and no additional complaints, except as documented *Cardiovascular Cardiovascular: Reports chest pain Comments: Right sided *Respiratory Respiratory: Reports cough *Gastrointestinal Gastrointestinal: Reports abdominal pain and Reports constipation *Genitourinary Genitourinary: Reports urinary urgency *Musculoskeletal Musculoskeletal: Reports system reviewed and no additional complaints, except as documented Integumentary/Breasts Skin/Breast: Reports system reviewed and no additional complaints, except as documented *Neurologic Neurologic: Reports system reviewed and no additional complaints, except as documented Psychiatric Psychiatric: Reports system reviewed and no additional complaints, except as documented Endocrine Endocrine: Reports system reviewed and no additional complaints, except as documented Hematologic/Lymphatic Hematologic/Lymphatic: Reports system reviewed and no additional complaints, except as documented Allergic/Immunologic Allergic/Immunologic: Reports system reviewed and no additional complaints, except as documented Meds Home Medications and Allergies Home Medications ?Medication ?Instructions ?Recorded ?Confirmed ?Type multivitamin-iron sulfate 15 See Rx Instructions .Trever renner 05/15/21 06/04/25 Rx mg-folic acid 400 mcg tablet .COMPLEX #30 tabs (Tab-A-Rubi Multivitamin w-iron) acetaminophen 500 mg tablet 1,000 mg (2 x 500 mg) PO Q 6H PRN 04/10/24 06/11/25 Rx pain #60 tabs atorvastatin 20 mg tablet 20 mg PO HS 12/30/24 5 History benztropine 0.5 mg tablet 0.5 mg PO BID 12/30/2406/11 History divalproex 125 mg tablet,delayed 375 mg PO BID 5 06/11/25 History release docusate sodium 100 mg tablet 100 mg PO DAILY 12/30/24 06/11/25 History ferrous sulfate 325 mg (65 mg 325 mg PO DAILY 12/30/24 06/11/25 History iron) tablet multivitamin 1 tab PO DAILY 12/30/2405/27 History olanzapine 20 mg tablet (Zyprexa) 20 mg PO HS 12/30/24 06/11/25 History oxybutynin chloride 10 mg 10 mg PO DAILY 90 days #90 t abs 02/25/25 06/11/25 Rx tablet,extended release 24 hr tamsulosin 0.4 mg capsule (Flomax) 0.4 mg PO DAILY 90 days #90 caps 02/25/25 06/11/25 Rx haloperidol 5 mg tablet 5 mg PO DAILY 06/04/2506/11 History albuterol sulfate 90 mcg/actuation 2 puff inhalation Q 4HP PRN 06/11/25 06/11/25 History aerosol inhaler (Ventolin HFA) Shortness Of Breath Or Wheezing hydroxyzine HCl 25 mg tablet 25 mg PO QID PRN Anxiety 06/11/25 06/11/25 History New Prescriptions to Start Prescriptions: Allergies Allergy/AdvReac Type Severity Reaction Status Date / Time chlorpromazine (From Allergy Unknown Verified 06/04/25 10:59 Thorazine) allergy reaction Exam Data for Last 24 hours Vital signs and Labs for Last 24 Hours: Temp Pulse Resp BP Pulse Ox O2 Del Method 98.0 F 61 12 136/58 L 97 Room Air 07/24/25 03:54 07/24/25 03:54 07/24/25 03:54 07/24/25 03:54 07/24/25 03:45 07/24/25 03:54 Laboratory Results - last 24 hr 07/24/25 00:55: WBC 25.1 H*, RBC 3.62 L, Hgb 12.6 L, Hct 35.2 L, MCV 97.2 H, MCH 34.8 H, MCHC 35.8 H, RDW 13.2, Plt Count 201, MPV 10.4, Neut % (Auto) 14.0 L, Lymph % (Auto) 81.7 H, [place] % (Auto) 2.9, Eos % (Auto) 1.1, Baso % (Auto) 0.2, Neut # (Auto) 3.5, Lymph # (Auto) 20.5 H, [place] # (Auto) 0.7, Eos # (Auto) 0.3, Baso # (Auto) 0.1, Total Counted 100, Neutrophils % (Manual) 14 L, Lymphocytes % (Manual) 83 H, Monocytes % (Manual) 2, Eosinophils % (Manual) 1, Platelet Estimate Normal, RBC Morphology Normal, PT 11.9, INR 1.08, VBG pH 7.43 H, VBG pCO2 42.6, VBG pO2 86.2 H, VBG HCO3 27.5, VBG Total CO2 28.8 H, VBG O2 Saturation 96.9 H, VBG Base Excess 3.2 H, VBG Lactic Acid 1.3, Sodium 128 L, Potassium 4.4, Chloride 94 L, Carbon Dioxide 28, Anion Gap 10.4, BUN 16, Creatinine 0.60 L, Estimated Creat Clear 61, Estimated GFR 137, Est GFR ( Amer) 165, Glucose 101 H, Calcium 9.0, Total Bilirubin 0.6, AST 31, ALT 20, Alkaline Phosphatase 98, Troponin I 0.01, Total Protein 7.0, Albumin 3.2 L, Globulin 3.8 H, Albumin/Globulin Ratio 0.8 L, HIV Ag/Ab Combo Qual Negative 07/24/25 01:06: Urine Color Yellow, Urine Appearance Cloudy, Urine pH 7.5, Ur Specific [place] 1.015, Urine Protein Negative, Urine Glucose (UA) Negative, Urine Ketones Negative, Urine Blood 1+ A, Urine Nitrate Positive A, Urine Bilirubin Negative, Urine Urobilinogen 0.2, Ur Leukocyte Esterase 3+ A, Urine RBC None, Urine WBC Tntc, Ur Squamous Epith Cells None, Urine Bacteria 1+ I & O for Last 24 hours: Intake & Output 07/21/25 07/22/25 07/23/25 07/24/25 23:59 23:59 23:59 23:59 Intake Total 1100 / 1100 Balance 1100 / 1100 Weight 56.699 kg Constitutional Constitutional: mild distress *Routine HEENT Exam Head: Present normocephalic and atraumatic Eye: Present EOMI, PERRL and normal accommodation ENT: Present mucous membranes moist *Routine Neck Exam Neck: Present supple and full ROM *Routine Respiratory Exam Respiratory: Present normal respiratory effort *Routine Cardiovascular Exam Cardiovascular: Present other Comments: Normal sinus rhythm, first-degree AV block *Routine Abdominal Exam Abdominal: Present soft and normoactive bowel sounds Comments: Generalized abdominal discomfort due to constipation *Routine Rectal Exam Rectal:: deferred *Routine Genitalia Exam Genitalia:: deferred Routine Back/Spine/Pelvis Exam Back/Spine: Present full ROM *Routine Skin Exam Skin: Present intact *Routine Neurological Exam Neurological: Present alert and oriented X3 Assessment and Plan *Assessment and plan (1) Acute cystitis: Status: Acute Qualifiers: Hematuria presence: without hematuria Qualified Code(s): N30.00 - Acute cystitis without hematuria Category: Medical Code(s): N30.00 - Acute cystitis without hematuria (2) Fecal impaction: Status: Acute Category: Medical Code(s): K56.41 - Fecal impaction (3) Constipation: Status: Acute Qualifiers: Constipation type: unspecified constipation type Qualified Code(s): K59.00 - Constipation, unspecified Category: Medical Code(s): K59.00 - Constipation, unspecified (4) Atypical chest pain: Status: Acute Category: Medical Code(s): R07.89 - Other chest pain (5) Chronic lymphocytic leukemia: Status: Acute Category: Medical Code(s): C91.10 - Chronic lymphocytic leukemia of B-cell type not having achieved remission (6) Scrotal mass: Status: Acute Category: Medical Code(s): N50.89 - Other specified disorders of the male genital organs (7) Chronic knee pain: Status: Acute Qualifiers: Laterality: right Qualified Code(s): M25.561 - Pain in right knee; G89.29 - Other chronic pain Category: Medical Code(s): M25.569 - Pain in unspecified knee; G89.29 - Other chronic pain (8) Chronic hyponatremia: Status: Acute Category: Medical Code(s): E87.1 - Hypo-osmolality and hyponatremia (9) Bladder incontinence: Status: Acute Qualifiers: Urinary Incontinence type: unspecified incontinence Qualified Code(s): R32 - Unspecified urinary incontinence Category: Medical Code(s): R32 - Unspecified urinary incontinence Plan 1. Urinary tract infection: UA with 1+ blood, positive urine nitrate, 3+ urine leukocyte esterase and 1+ bacteria. IV Rocephin, urine culture obtained and pending, follow. 2. Fecal impaction/constipation: Imaging studies noted above, received subset enema in the emergency department with small amount of stool removal. Patient with complaint of abdominal pain suspect likely cause. Bowel regime in place. 3. Atypical chest pain: Complaint of right-sided chest pain, CTA obtained to rule out PE which imaging was unremarkable for pulmonary embolism or any other underlying disease process. Patient with complaint of cough, respiratory pathogen panel obtained and pending will follow. Oxygen saturations within normal limit, continue to monitor. 4. CLL: WBC consistent with CLL 25.1, currently no treatment. Noted to be an early stage CLL. Follows with oncology, Dr. Gagandeep Metzger. Follow-up in 6 months. 5. Chronic knee pain: Secondary to arthritis, continue to manage pain as needed with Tylenol. Patient currently without complaints at this time continue to monitor. 6. Chronic hyponatremia: Sodium 128, appears close to baseline-continue to monitor closely, resume gentle IV fluids for hydration due to recent poor oral intake. 7. Urinary incontinence: Resume home medication regime for underlying incontinence. 8. DVT prophylaxis: SCD's Full code I personally discussed the management of this patient with the emergency department provider. Patient was found to have a urinary tract infection, concern for PE due to atypical right-sided chest pain, imaging scan as noted above unremarkable for PE. Pending respiratory pathogen panel. Fecal impaction/constipation and urinary tract infection found upon workup, IV antibiotic initiated, received soapsuds enema in emergency department. Continue bowel regime.
--- NOTE | 2025-07-24 04:46 | PC.NURSE ---
patient from [facility]. patient is alert and oriented to name, birthdate, and hospital but is otherwise confused. patient is a poor historian for admission history questions. Contacting [facility] to get current medication list.
--- NOTE | 2025-07-24 04:53 | PC.NURSE ---
Patient from [facility], no med list brought in with patient, called ER and no records. Called [facility] and they do not have a fax machine to send us information. Med rec is not done due to this and the external med list shows meds have no been refilled since 06/10/25. Will defer this to pharmacy.
[2025-07-24 05:42] LABS: Troponin I 0.01 ng/ml (0.00-0.034)
[2025-07-24] MEDS: 0.9 % SODIUM CHLORIDE 1000ML 1,000 ML 75 ML IV (06:38)
--- NOTE | 2025-07-24 08:20 | P.CONPHA_ITS ---
Pharmacy Intervention Comments: MEDICATION RECONCILIATION COMPLETED ON PATIENT USING EXTERNAL FILL HISTORY FROM PHARMACY AND CALL TO [facility] TO CLARIFY MEDICATIONS. -AUSTYN MCGARRY, HALIED
--- NOTE | 2025-07-24 08:20 | HMH.PHAINT1 ---
Pharmacy Intervention Comments: MEDICATION RECONCILIATION COMPLETED ON PATIENT USING EXTERNAL FILL HISTORY FROM PHARMACY AND CALL TO [facility] TO CLARIFY MEDICATIONS. -AUSTYN MCGARRY, HALIED
[2025-07-24 08:28] LABS: Troponin I 0.02 ng/ml (0.00-0.034)
[2025-07-24] MEDS: POLYETHYLENE GLYCOL 3350 17 GM PACKET PO (08:28)
[2025-07-24] MEDS: DOCUSATE SODIUM 100 MG CAPSULE PO (08:28)
--- NOTE | 2025-07-24 09:14 | SW/DCPLANNER ---
Addendum entered by Mignon Higgins 07/24/25 11:55: I have updated Suzette francois/ Richy Madera that patient will return today. Original Note: Patient currently resides at [facility]. PT stated that patient can return to [facility] once medically stable for discharge. I have updated Suzette francois/ Richy Madera and will continue to follow up. Discharge date is unknown at this time.
--- NOTE | 2025-07-24 10:24 | HMH.OTEV ---
OT Evaluation Rehab OT IP Evaluation Start: 07/24/25 08:14 Freq: ONCE Status: Active Protocol: Document 07/24/25 10:17 ESTHER (Rec: 07/24/25 10:24 ESTHER [id number]) Rehab OT IP Assessment Subjective History Patient is a 60-year-old male with past medical history significant for CLL, bladder incontinence, bladder mass, arthritis of the right knee. Presents to [facility] secondary to complaint of right-sided chest pain and abdominal pain. Patient resides at [facility]. EMS was notified and due to his chest pain he received 324 mg of aspirin and 0.4 of nitro. ED workup included laboratory studies and imaging. CTA obtained to rule out a pulmonary embolism, unremarkable for PE and or any other acute findings. Patient noted nausea and vomiting. CT abdomen obtained secondary to abdominal pain. Imaging noted moderate stool and cystitis. Rocephin initiated while in the emergency department along with attempting fecal disimpaction. Received soapsuds enema in the emergency department. ED provider noted minimal success but was able to move a small amount of stool. Respiratory pathogen panel obtained as well due to cough. Possibly correlating with right sided chest discomfort. Pathogen panel currently pending. Hemodynamically stable. Denies fever , chills. ED workup included laboratory studies and imaging as noted above: Significant laboratory studies CLL 25.1, sodium 128, chloride 94, UA with 1+ blood, urine nitrate positive, urine leukocyte esterase 3+, urine bacteria 1+. I personally reviewed imaging studies, which included chest CTA, showing no evidence of pulmonary embolus or other acute process. CT abdomen and pelvis showing, distended bladder with diffuse wall thickening with increased enhancement suspect cystitis and moderate retained stool, no ileus or obstruction. Resident at [facility] (Assisted Living facility) home. Independent with ADLs and fx'l mobility. Staff provide meals, transportation and medication. Uses a RW to ambulate within facility. Subjective I need to use the restroom. Instructed Patient on safety awareness to complete bed mobility from supine->sit @ EOB requiring SUP. Instructed Patient on safety awareness to complete STS and fx'l mobility to restroom ~50ft with usage of RW. Patient incontinent of bowel and bladder mgt tr. Patient required Min A For proper toilet hygiene and brief changing. Patient required SBA to assist with hand washing task while standing at sink. Patient requires consistent verbal cueing for safety to correct pacing throughout facility. Objective Patient Orientation Person,Place,Name,Age Right Upper WFL Extremity Gross ROM Left Upper Extremity WFL Gross ROM Bed Mobility bed mobility - supine/sit Assist Level Supervision/Stand by Transfer Training Sit/Stand/Step Transfer Assist Level Minimal x 1 (25% assist) Lower Body Dressing Minimal Assistance Ability Performing Toilet Minimal Assistance Hygiene Ability Rehab OT IP prob,goals,plan Problems Date of Evaluation: 07/24/25 OT IP Problems Bed Mobility,Transfers,Balance,Self care,Safety Rehab Potential Rehab Potential Good Equipment Needs Assistive Devices Straight Cane Plan OT intervention Plan Bed Mobility,Transfers,Balance,Self care,Safety, Therapeutic Exercise OT Plan Frequency Daily Duration LOS Discharge Goals Bed Mobility Ability Standby Assistance Sit to Stand Chair Contact Guard/Hand Hold Transfer Ability Performing Toilet Standby Assistance Hygiene Ability Overall Commode/ Standby Assistance Toilet Transfer Ability Commode/Toilet Sit to/from Ambulatory Transfer Technique Discharge Plan OT Discharge Plan Recommend patient return back to [facility]. Patient to continue skilled OT Services to address safety awareness for ADLs and fx'l mobility tasks. Eval Complexity Eval Charge Codes 69324 - Low Complexity PHYSICIAN CERTIFICATION: I certify the specified therapy services for John Hunt are required, authorized, and reviewed every 30 days.
--- NOTE | 2025-07-24 10:27 | HMH.PTEV ---
Physical Therapy Evaluation Rehab PT IP Evaluation Start: 07/24/25 08:14 Freq: ONCE Status: Active Protocol: Document 07/24/25 10:23 GUILLE (Rec: 07/24/25 10:26 GUILLE [id number]) Subjective/History History History Per H&P: Patient is a 60-year-old male with past medical history significant for CLL, bladder incontinence, bladder mass, arthritis of the right knee . Presents to [facility] secondary to complaint of right-sided chest pain and abdominal pain. Patient resides at [facility]. EMS was notified and due to his chest pain he received 324 mg of aspirin and 0.4 of nitro. ED workup included laboratory studies and imaging. CTA obtained to rule out a pulmonary embolism, unremarkable for PE and or any other acute findings. Patient noted nausea and vomiting. CT abdomen obtained secondary to abdominal pain. Imaging noted moderate stool and cystitis. Rocephin initiated while in the emergency department along with attempting fecal disimpaction. Received soapsuds enema in the emergency department. ED provider noted minimal success but was able to move a small amount of stool. Respiratory pathogen panel obtained as well due to cough. Possibly correlating with right sided chest discomfort. Pathogen panel currently pending. Hemodynamically stable. Denies fever , chills. ED workup included laboratory studies and imaging as noted above: Significant laboratory studies CLL 25.1, sodium 128, chloride 94, UA with 1+ blood, urine nitrate positive, urine leukocyte esterase 3+, urine bacteria 1+. I personally reviewed imaging studies, which included chest CTA, showing no evidence of pulmonary embolus or other acute process. CT abdomen and pelvis showing, distended bladder with diffuse wall thickening with increased enhancement suspect cystitis and moderate retained stool, no ileus or obstruction. Subjective Subjective Pt reports he lives at [facility] and is usually IND with mobility with use of RW. Pt denies any falls in the past 30 days. New diagnosis of No cancer in past 12 months? [facility] How much help from another person do you currently need... Turning from your None back to your side while in a flat bed without using bedrails? Moving from lying on None back to sitting on the side of a flat bed without using bedrails? Moving to and from a None bed to a chair ( including a wheelchair)? Standing up from a None chair using your arms? (e.g., wheelchair, bedside chair) Walking in hospital A little room? Climbing 3-5 steps A little with a railing? Mobility Score 22 Mobility Level [facility] 7 Walk 25 feet or more Mobility Calculator Rehab PT IP Eval Objective Appearance Patient Behavior Appropriate,Cooperative Patient Orientation Person Difficulty following none instructions Speech Pattern Clear Ambulation Patient Able to Yes Ambulate Ambulation Observation IP General Gait Wide Based Gait,Shuffling Step Pattern Observation Ambulation Distance 30 (feet) Ambulation Assistive Rolling Walker Device Ambulation Ability Contact Guard/Hand Hold Balance Ability to Arise Able, uses arms to help Sitting Balance Steady, safe Standing Balance Steady, wide stance Dynamic Sitting Good Balance Ability Dynamic Standing Fair Balance Ability Transfers Bed Transfer Ability Independent Sit to Stand Bed Independent Transfer Ability Rehab PT IP prob,goals,plan Problems Date of Evaluation: 07/24/25 PT IP Problems Transfers,Gait,Balance,Self care,Safety Rehab Potential Rehab Potential Good Equipment Needs Assistive Devices Rolling / Wheeled Walker Plan PT Intervention Plan Transfers,Gait,Balance,Self care,Safety,Therapeutic Exercise Other Intervention 1-2 times Plan PT Plan Frequency Daily Duration LOS Discharge Goals Bed Transfer Ability Independent Sit to Stand Chair Independent Transfer Ability Ambulation Assistive Rolling Walker Device Ambulation Distance 100 (feet) Discharge Plan PT Discharge Plan Initial physical therapy evaluation performed. Patient presents below baseline at this time in functional mobility, transfers, gait, and strength. Pt would benefit from skilled PT while at [facility] to prevent further functional decline and maximize safety with mobility. Pt most appropriate to d/c home when deemed medically necessary d/t current level of mobility. PT recommending home health PT services to address deficits. Eval Complexity Eval Charge Codes 05390 - Moderate Complexity PHYSICIAN CERTIFICATION: I certify the specified therapy services for John Hunt are required, authorized, and reviewed every 30 days.
[2025-07-24 12:39] LABS: Thyroid Stimulating Hormone 4.05 uIU/mL (0.465-4.68)
[2025-07-24 12:58] LABS: Vitamin B12 842 pg/mL (239-931)
--- NOTE | 2025-07-24 13:24 | EXP.DC.SUM ---
General Admission date:: 07/24/25 HPI HPI HPI: Patient is a 60-year-old male with past medical history significant for CLL, bladder incontinence, bladder mass, arthritis of the right knee. Presents to [facility] secondary to complaint of right-sided chest pain and abdominal pain. Patient resides at [facility] [place]. EMS was notified and due to his chest pain he received 324 mg of aspirin and 0.4 of nitro. ED workup included laboratory studies and imaging. CTA obtained to rule out a pulmonary embolism, unremarkable for PE and or any other acute findings. Patient noted nausea and vomiting. CT abdomen obtained secondary to abdominal pain. Imaging noted moderate stool and cystitis. Rocephin initiated while in the emergency department along with attempting fecal disimpaction. Received soapsuds enema in the emergency department. ED provider noted minimal success but was able to move a small amount of stool. Respiratory pathogen panel obtained as well due to cough. Possibly correlating with right sided chest discomfort. Pathogen panel currently pending. Hemodynamically stable. Denies fever, chills. ED workup included laboratory studies and imaging as noted above: Significant laboratory studies CLL 25.1, sodium 128, chloride 94, UA with 1+ blood, urine nitrate positive, urine leukocyte esterase 3+, urine bacteria 1+. I personally reviewed imaging studies, which included chest CTA, showing no evidence of pulmonary embolus or other acute process. CT abdomen and pelvis showing, distended bladder with diffuse wall thickening with increased enhancement suspect cystitis and moderate retained stool, no ileus or obstruction. Hospital Course Hospital Course Hospital Course: John Hunt is a 60-year-old male who presented with abdominal pain and was admitted for severe fecal impaction. #Fecal impaction #Constipation ? Presented with abdominal pain, CT abdomen/pelvis showed significant stool burden. ? Patient states he has not been drinking as much water, nor eating as much due to the decreased appetite. ? Fecal impaction significantly improved with multiple bowel movements with bowel regimen during admission. Patient states he feels much better. He also states he feels like his appetite is improved, ate almost all his food. ? Advised on free water hydration, fiber with fruits and vegetables, and started MiraLAX 17 g daily. Patient is amenable to this. ? In addition, patient has not had a colonoscopy. Discussed with him and he is interested, referred to GI for further evaluation and management. #UTI ? UA grossly abnormal, with abdominal pain. ? Treated with IV ceftriaxone, discharged with levofloxacin 50 mg daily for 6 more days. Will follow-up on urine culture. #CLL ? WBC consistent with CLL 25.1. Stable, no indications of blast crisis at this time. Follows with Dr. 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 No treatment needed at this time per Dr. Metzger. Follow-up in 6 months. #Mood disorder ? Continue home Depakote 375 mg twice daily, olanzapine 20 mg nightly, benztropine 0.5 mg twice daily. #BPH ? Continue home tamsulosin 0.4 mg. Exam Data for Last 24 hours Vital signs and Labs for Last 24 Hours: Temp Pulse Resp BP Pulse Ox O2 Del Method 98.7 F 59 L 16 113/63 95 Room Air 07/24/25 08:00 07/24/25 08:00 07/24/25 08:00 07/24/25 08:00 07/24/25 08:00 07/24/25 11:00 Laboratory Results - last 24 hr 07/24/25 00:55: WBC 25.1 H*, RBC 3.62 L, Hgb 12.6 L, Hct 35.2 L, MCV 97.2 H, MCH 34.8 H, MCHC 35.8 H, RDW 13.2, Plt Count 201, MPV 10.4, Neut % (Auto) 14.0 L, Lymph % (Auto) 81.7 H, Dewitt % (Auto) 2.9, Eos % (Auto) 1.1, Baso % (Auto) 0.2, Neut # (Auto) 3.5, Lymph # (Auto) 20.5 H, Dewitt # (Auto) 0.7, Eos # (Auto) 0.3, Baso # (Auto) 0.1, Total Counted 100, Neutrophils % (Manual) 14 L, Lymphocytes % (Manual) 83 H, Monocytes % (Manual) 2, Eosinophils % (Manual) 1, Platelet Estimate Normal, RBC Morphology Normal, PT 11.9, INR 1.08, VBG pH 7.43 H, VBG pCO2 42.6, VBG pO2 86.2 H, VBG HCO3 27.5, VBG Total CO2 28.8 H, VBG O2 Saturation 96.9 H, VBG Base Excess 3.2 H, VBG Lactic Acid 1.3, Sodium 128 L, Potassium 4.4, Chloride 94 L, Carbon Dioxide 28, Anion Gap 10.4, BUN 16, Creatinine 0.60 L, Estimated Creat Clear 61, Estimated GFR 137, Est GFR ( Amer) 165, Glucose 101 H, Calcium 9.0, Total Bilirubin 0.6, AST 31, ALT 20, Alkaline Phosphatase 98, Troponin I 0.01, Total Protein 7.0, Albumin 3.2 L, Globulin 3.8 H, Albumin/Globulin Ratio 0.8 L, HCV Ab NIEVES w/Rflx PCR Qn Negative, HIV Ag/Ab Combo Qual Negative 07/24/25 01:06: Urine Color Yellow, Urine Appearance Cloudy, Urine pH 7.5, Ur Specific Frost 1.015, Urine Protein Negative, Urine Glucose (UA) Negative, Urine Ketones Negative, Urine Blood 1+ A, Urine Nitrate Positive A, Urine Bilirubin Negative, Urine Urobilinogen 0.2, Ur Leukocyte Esterase 3+ A, Urine RBC None, Urine WBC Tntc, Ur Squamous Epith Cells None, Urine Bacteria 1+ 07/24/25 01:26: Chlamy pneumoniae PCR Not detected, Adenovirus (PCR) Not detected, B. pertussis DNA (PCR) Not detected, Coronavirus OC43 (PCR) Not detected, Coronavirus HKU1 (PCR) Not detected, Coronavirus 229E (PCR) Not detected, SARS-CoV-2 (PCR) Not detected, Coronavirus NL63 (PCR) Not detected, Human Metapneumovir PCR Not detected, Influenza A (H1) PCR Not detected, Influ A (H1N1/09) PCR Not detected, Influenza A (H3) PCR Not detected, Influenza Type A (PCR) Not detected, Influenza Type B (PCR) Not detected, M. pneumoniae (PCR) Not detected, Parainfluenza 1 (PCR) Not detected, Parainfluenza 2 (PCR) Not detected, Parainfluenza 3 (PCR) Not detected, Parainfluenza 4 (PCR) Not detected, RSV (PCR) Not detected, Entero/Rhino (PCR) Not detected 07/24/25 05:02: Troponin I 0.01 07/24/25 07:50: Troponin I 0.02, Vitamin B12 842, TSH 4.05 I & O for Last 24 hours: Intake & Output 10/07/22/25 07/23/25 07/24/25 23:59 23:59 23:59 23:59 Intake Total 1100 / 1100 Output Total 650 / 650 Balance 450 / 450 Weight 59.194 kg Constitutional Constitutional: no acute distress and chronically ill appearing *Routine HEENT Exam Head: Present normocephalic Eye: Present EOMI and PERRL ENT: Present mucous membranes moist *Routine Neck Exam Neck: Present supple; Absent lymphadenopathy *Routine Respiratory Exam Respiratory: Present CTA bilaterally *Routine Cardiovascular Exam Cardiovascular: Present RRR *Routine Abdominal Exam Abdominal: Present soft and normoactive bowel sounds; Absent tenderness *Routine Extremities Exam Extremities: Absent cyanosis, clubbing or edema *Routine Skin Exam Skin: Present warm; Absent rash *Routine Neurological Exam Neurological: Present alert and oriented X3 Results Data Completed and Pending Labs on day of discharge: Labs from last 24 hours 07/24/25 07/24/25 07/24/25 07:50 05:02 01:26 WBC RBC Hgb Hct MCV MCH MCHC RDW Plt Count MPV Neut % (Auto) Lymph % (Auto) Dewitt % (Auto) Eos % (Auto) Baso % (Auto) Neut # (Auto) Lymph # (Auto) Dewitt # (Auto) Eos # (Auto) Baso # (Auto) Total Counted Neutrophils % (Manual) Lymphocytes % (Manual) Monocytes % (Manual) Eosinophils % (Manual) Platelet Estimate RBC Morphology PT INR VBG pH VBG pCO2 VBG pO2 VBG HCO3 VBG Total CO2 VBG O2 Saturation VBG Base Excess VBG Lactic Acid Sodium Potassium Chloride Carbon Dioxide Anion Gap BUN Creatinine Estimated Creat Clear Estimated GFR Est GFR ( Amer) Glucose Calcium Total Bilirubin AST ALT Alkaline Phosphatase Troponin I 0.02 0.01 Total Protein Albumin Globulin Albumin/Globulin Ratio Vitamin B12 842 TSH 4.05 Urine Color Urine Appearance Urine pH Ur Specific Frost Urine Protein Urine Glucose (UA) Urine Ketones Urine Blood Urine Nitrate Urine Bilirubin Urine Urobilinogen Ur Leukocyte Esterase Urine RBC Urine WBC Ur Squamous Epith Cells Urine Bacteria Chlamy pneumoniae PCR Not detected Adenovirus (PCR) Not detected B. pertussis DNA (PCR) Not detected Coronavirus OC43 (PCR) Not detected Coronavirus HKU1 (PCR) Not detected Coronavirus 229E (PCR) Not detected SARS-CoV-2 (PCR) Not detected Coronavirus NL63 (PCR) Not detected HCV Ab NIEVES w/Rflx PCR Qn HIV Ag/Ab Combo Qual Human Metapneumovir PCR Not detected Influenza A (H1) PCR Not detected Influ A (H1N1/09) PCR Not detected Influenza A (H3) PCR Not detected Influenza Type A (PCR) Not detected Influenza Type B (PCR) Not detected M. pneumoniae (PCR) Not detected Parainfluenza 1 (PCR) Not detected Parainfluenza 2 (PCR) Not detected Parainfluenza 3 (PCR) Not detected Parainfluenza 4 (PCR) Not detected RSV (PCR) Not detected Entero/Rhino (PCR) Not detected 07/24/25 07/24/25 01:06 00:55 WBC 25.1 H* RBC 3.62 L Hgb 12.6 L Hct 35.2 L MCV 97.2 H MCH 34.8 H MCHC 35.8 H RDW 13.2 Plt Count 201 MPV 10.4 Neut % (Auto) 14.0 L Lymph % (Auto) 81.7 H Dewitt % (Auto) 2.9 Eos % (Auto) 1.1 Baso % (Auto) 0.2 Neut # (Auto) 3.5 Lymph # (Auto) 20.5 H Dewitt # (Auto) 0.7 Eos # (Auto) 0.3 Baso # (Auto) 0.1 Total Counted 100 Neutrophils % (Manual) 14 L Lymphocytes % (Manual) 83 H Monocytes % (Manual) 2 Eosinophils % (Manual) 1 Platelet Estimate Normal RBC Morphology Normal PT 11.9 INR 1.08 VBG pH 7.43 H VBG pCO2 42.6 VBG pO2 86.2 H VBG HCO3 27.5 VBG Total CO2 28.8 H VBG O2 Saturation 96.9 H VBG Base Excess 3.2 H VBG Lactic Acid 1.3 Sodium 128 L Potassium 4.4 Chloride 94 L Carbon Dioxide 28 Anion Gap 10.4 BUN 16 Creatinine 0.60 L Estimated Creat Clear 61 Estimated GFR 137 Est GFR ( Amer) 165 Glucose 101 H Calcium 9.0 Total Bilirubin 0.6 AST 31 ALT 20 Alkaline Phosphatase 98 Troponin I 0.01 Total Protein 7.0 Albumin 3.2 L Globulin 3.8 H Albumin/Globulin Ratio 0.8 L Vitamin B12 TSH Urine Color Yellow Urine Appearance Cloudy Urine pH 7.5 Ur Specific Frost 1.015 Urine Protein Negative Urine Glucose (UA) Negative Urine Ketones Negative Urine Blood 1+ A Urine Nitrate Positive A Urine Bilirubin Negative Urine Urobilinogen 0.2 Ur Leukocyte Esterase 3+ A Urine RBC None Urine WBC Tntc Ur Squamous Epith Cells None Urine Bacteria 1+ Chlamy pneumoniae PCR Adenovirus (PCR) B. pertussis DNA (PCR) Coronavirus OC43 (PCR) Coronavirus HKU1 (PCR) Coronavirus 229E (PCR) SARS-CoV-2 (PCR) Coronavirus NL63 (PCR) HCV Ab NIEVES w/Rflx PCR Qn Negative HIV Ag/Ab Combo Qual Negative Human Metapneumovir PCR Influenza A (H1) PCR Influ A (H1N1/) PCR Influenza A (H3) PCR Influenza Type A (PCR) Influenza Type B (PCR) M. pneumoniae (PCR) Parainfluenza 1 (PCR) Parainfluenza 2 (PCR) Parainfluenza 3 (PCR) Parainfluenza 4 (PCR) RSV (PCR) Entero/Rhino (PCR) DS: Diagnosis Discharge Diagnosis (1) Acute cystitis: Status: Acute Code(s): N30.00 - Acute cystitis without hematuria Qualifiers: Hematuria presence: without hematuria Qualified Code(s): N30.00 - Acute cystitis without hematuria (2) Fecal impaction: Status: Acute Code(s): K56.41 - Fecal impaction (3) Constipation: Status: Acute Code(s): K59.00 - Constipation, unspecified Qualifiers: Constipation type: unspecified constipation type Qualified Code(s): K59.00 - Constipation, unspecified (4) Atypical chest pain: Status: Acute Code(s): R07.89 - Other chest pain (5) Chronic lymphocytic leukemia: Status: Acute Code(s): C91.10 - Chronic lymphocytic leukemia of B-cell type not having achieved remission (6) Scrotal mass: Status: Acute Code(s): N50.89 - Other specified disorders of the male genital organs (7) Chronic knee pain: Status: Acute Code(s): M25.569 - Pain in unspecified knee; G89.29 - Other chronic pain Qualifiers: Laterality: right Qualified Code(s): M25.561 - Pain in right knee; G89.29 - Other chronic pain (8) Chronic hyponatremia: Status: Acute Code(s): E87.1 - Hypo-osmolality and hyponatremia (9) Bladder incontinence: Status: Acute Code(s): R32 - Unspecified urinary incontinence Qualifiers: Urinary Incontinence type: unspecified incontinence Qualified Code(s): R32 - Unspecified urinary incontinence Meds Home Medications and Allergies Home Medications ?Medication ?Instructions ?Recorded ?Confirmed ?Type atorvastatin 20 mg tablet 20 mg PO HS 12/30/24 07/24/25 History benztropine 0.5 mg tablet 0.5 mg PO BID 12/30/24 07/24/25 History divalproex 125 mg tablet,delayed 375 mg PO BID 12/30/24 07/24/25 History release docusate sodium 100 mg tablet 100 mg PO DAILY 12/30/24 07/24/25 History ferrous sulfate 325 mg (65 mg 325 mg PO DAILY 12/30/24 07/24/25 History iron) tablet multivitamin 1 tab PO DAILY 12/30/24 07/24/25 History olanzapine 20 mg tablet (Zyprexa) 20 mg PO HS 12/30/24 07/24/25 History oxybutynin chloride 10 mg 10 mg PO DAILY 90 days #90 tabs 02/25/25 07/24/25 Rx tablet,extended release 24 hr tamsulosin 0.4 mg capsule (Flomax) 0.4 mg PO DAILY 90 days #90 caps 02/25/25 07/24/25 Rx haloperidol 5 mg tablet 5 mg PO TID 06/04/25 07/24/25 History albuterol sulfate 90 mcg/actuation 2 puff inhalation Q4HP PRN 06/11/25 07/24/25 History aerosol inhaler (Ventolin HFA) Shortness Of Breath Or Wheezing acetaminophen 500 mg tablet 1,000 mg PO Q6HP PRN Mild Pain 07/24/25 07/24/25 History (Scale Score 1-4) ibuprofen 400 mg tablet 400 mg PO TIDP PRN Mild Pain 07/24/25 07/24/25 History (Scale Score 1-4) levofloxacin 750 mg tablet 750 mg PO DAILY 6 days #6 tabs 07/24/25 Rx polyethylene glycol 3350 17 gram 17 g PO DAILY #30 ea 07/24/25 Rx oral powder packet (HealthyLax) New Prescriptions to Start Prescriptions: levofloxacin Flaco Davis polyethylene glycol 3350 [HealthyLax] Flaco Davis Allergies Allergy/AdvReac Type Severity Reaction Status Date / Time chlorpromazine (From Allergy Unknown Verified 06/04/25 10:59 Thorazine) allergy reaction Discharge Plan Disposition Patient Disposition: Home, Self-Care Condition: Fair Follow up Plan Follow up with: Jalil Do II, MD [Staff Physician, Gastroenterology] - 08/26/25 10:15 am Referral Note: Poor appetite, weight loss, constipation, and has never had colonoscopy. Prescriptions/Medication Reconciliation: New polyethylene glycol 3350 [HealthyLax] 17 gram Powder In Packet 17 g PO DAILY Qty: 30 0RF levofloxacin 750 mg tablet 750 mg PO DAILY 6 Days Qty: 6 0RF Continued oxybutynin chloride 10 mg tablet extended release 24hr 10 mg PO DAILY 90 Days Qty: 90 0RF tamsulosin [Flomax] 0.4 mg capsule 0.4 mg PO DAILY 90 Days Qty: 90 0RF haloperidol 5 mg tablet 5 mg PO TID docusate sodium 100 mg Tablet 100 mg PO DAILY ferrous sulfate 325 mg (65 mg iron) Tablet 325 mg PO DAILY multivitamin Tablet 1 tab PO DAILY atorvastatin 20 mg Tablet 20 mg PO HS benztropine 0.5 mg Tablet 0.5 mg PO BID divalproex 125 mg Tablet,Delayed Release (Dr/Ec) 375 mg PO BID olanzapine [Zyprexa] 20 mg Tablet 20 mg PO HS albuterol sulfate [Ventolin HFA] 90 mcg/actuation Hfa Aerosol Inhaler 2 puff INHALATION Q4HP PRN (Reason: Shortness Of Breath Or Wheezing) acetaminophen 500 mg tablet 1,000 mg PO Q6HP PRN (Reason: Mild Pain (Scale Score 1-4)) ibuprofen 400 mg tablet 400 mg PO TIDP PRN (Reason: Mild Pain (Scale Score 1-4)) Problem Reconciliation Problems Reviewed?: Yes Patient Discharge Instructions Patient Instructions: DI for Constipation, DI for Fecal Impaction, Stop Light Infection Print Language: Pashto Providers Primary Care Provider: Provider,Referral Admit Provider: Flaco Davis Attending Provider: Flaco Davis
--- NOTE | 2025-07-25 10:50 | SW/DCPLANNER ---
Spoke with patient's critical care unit nurse on the phone. Patient's critical care unit nurse stated that he is doing good. patient's critical care unit nurse stated that they are aware of his upcoming appointment. Patient's critical care unit nurse stated that they got his medicine. patient's caregiver stated that they have no concerns or questions at this time. Natalio Carter
[2025-07-25 12:12] LABS: CA 19-9 22 U/mL (0-35); CEA 6.9 ng/mL (0.0-4.7)
--- NOTE | 2025-07-26 08:08 | PC.NURSE ---
Urine culture forwarded to hospitalist.
== END 2025-07-24 15:21 | disposition home or self-care (01) ==
LOC: ER 01:24 → 2ND 03:22
PROVIDERS: Admitting Provider Student in an Organized Health Care Education/Training Program; Emergency Provider Emergency Medicine; Visit Provider Student in an Organized Health Care Education/Training Program
DX: N30.00 Acute cystitis without hematuria (principal); K56.41 Fecal impaction; R07.89 Other chest pain; C91.10 Chronic lymphocytic leukemia of B-cell type not having achieved remission; N50.89 Other specified disorders of the male genital organs; M17.11 Unilateral primary osteoarthritis, right knee; G89.29 Other chronic pain; E87.1 Hypo-osmolality and hyponatremia; F39 Unspecified mood [affective] disorder; F20.9 Schizophrenia, unspecified; N40.1 Benign prostatic hyperplasia with lower urinary tract symptoms; I44.0 Atrioventricular block, first degree; N39.42 Incontinence without sensory awareness; Z88.8 Allergy status to other drugs, medicaments and biological substances; Z79.891 Long term (current) use of opiate analgesic; Z79.899 Other long term (current) drug therapy
CPT/HCPCS: 0223U; 51798; 71275; 74177; 80053; 81001; 82105; 82378; 82607; 82803; 84443; 84484; 85007; 85025; 85027; 85610; 86301; 86803; 87040; 87086; 87088; 87186; 87389; 93005; 96361; 96365; 96375; 97162; 97165; 99285; G0103; G0378; J0696; J2405; J7030; J7120; Q9967